=== PATIENT | male | born 1940 | race Caucasian/White ===

== ENCOUNTER 2021-11-21 09:36 | Outpatient (CLI) | payer MEDICARE, BC, SELFPAY ==
--- NOTE | 2021-11-21 09:15 | CRLHL7_ITS ---
For Patients: As a result of the Century Cures Act, medical imaging exams and procedure reports are released immediately into your electronic medical record. You may view this report before your referring provider. If you have questions, please contact your health care provider. CLINICAL HISTORY: Unspecified abdominal pain COMPARISON: none TECHNIQUE: Kennedy scale and color Doppler images were acquired of the kidneys and urinary bladder. FINDINGS: Sonographic images reveal a symmetric appearance of the kidneys. There is no evidence of hydronephrosis, mass or calculus. The right kidney measures 10.7cm in length and the left kidney measures 11.7cm in length. The renal cortex appears of normal thickness. Lobular contour of the bladder with bladder wall thickening measuring 6 millimeters. Small diverticulum suspected inferiorly. Color Doppler images reveal a normal appearance of both ureteral jets. IMPRESSION: Normal renal ultrasound. Lobular contour of the bladder with diverticulum suspected inferiorly along with bladder wall thickening. Dictated by Daniel Stuart MD @ 11/21/2021 10:45:51 AM (Electronically Signed)
== END 2021-11-21 09:37 | disposition home or self-care (01) ==
LOC: US 09:37
PROVIDERS: Visit Provider Internal Medicine Nephrology
DX: R10.9 Unspecified abdominal pain (principal)
CPT/HCPCS: 76775

== ENCOUNTER 2021-12-01 15:50 | Outpatient (CLI) | payer MEDICARE, BC, SELFPAY ==
[2021-12-01 20:40] LABS: Albumin* 3.7 g/dL (3.3-5.0); Chloride* 105 mmol/L (96-114); Potassium* 4.7 mmol/L (3.6-5.1); Sodium* 139 mmol/L (135-149)
[2021-12-01 20:42] LABS: Iron* 63 ug/dL (49-181)
[2021-12-01 20:43] LABS: Blood Urea Nitrogen* 61 mg/dL (7-30); Carbon Dioxide* 24 mmol/L (20-32); Creatinine* 2.4 mg/dL (0.5-1.5); Estimated Glomerular Filt Rate 27 ml/min; Glucose* 125 mg/dL (60-115); Uric Acid* 9.2 mg/dL (2.2-8.4)
[2021-12-01 20:44] LABS: Calcium* 9.1 mg/dL (8.4-10.6); Phosphorus* 3.6 mg/dL (2.5-4.5)
[2021-12-01 20:50] LABS: Creatinine Urine 45.2 mg/dL
[2021-12-01 20:51] LABS: Percent Iron Saturation 26 % (20-50); Total Iron Binding Capacity 248 ug/dL (261-462)
[2021-12-01 20:54] LABS: Microalbumin Creatinine Ratio 80 mg/g (0-30); Microalbumin Urine 4 mg/dL
== END 2021-12-01 15:51 | disposition home or self-care (01) ==
PROVIDERS: Visit Provider Internal Medicine Nephrology
DX: I13.0 Hypertensive heart and chronic kidney disease with heart failure and stage 1 through stage 4 chronic kidney disease, or unspecified chronic kidney disease (principal); E11.22 Type 2 diabetes mellitus with diabetic chronic kidney disease; N18.32 Chronic kidney disease, stage 3b; R10.9 Unspecified abdominal pain; R82.90 Unspecified abnormal findings in urine; I50.82 Biventricular heart failure; N25.81 Secondary hyperparathyroidism of renal origin
CPT/HCPCS: 80069; 82043; 82570; 82728; 83540; 83550; 84550; 87086

== ENCOUNTER 2022-09-01 13:59 | Outpatient (CLI) | payer MEDICARE, BC, SELFPAY ==
--- NOTE | 2022-09-15 08:50 | PC.NURSE ---
[facility] received orders for Iron infusions and Aranesp on 09/02/[address] Mccurdy. PA process completed and [facility] attempted to call pt x 3 (09/02, 09/07, 09/14) with no answer each time. Unable to reach pt to schedule. RN called Dr. Mccurdy's office today to update ordering provider.
== END 2022-09-01 14:00 | disposition home or self-care (01) ==
PROVIDERS: Visit Provider Internal Medicine Nephrology
DX: E11.22 Type 2 diabetes mellitus with diabetic chronic kidney disease (principal); N18.4 Chronic kidney disease, stage 4 (severe); D63.1 Anemia in chronic kidney disease; I50.82 Biventricular heart failure; N25.81 Secondary hyperparathyroidism of renal origin; E78.5 Hyperlipidemia, unspecified
CPT/HCPCS: 80069; 82607; 82728; 82746; 83540; 83550; 84550

== ENCOUNTER 2023-01-01 14:00 | Outpatient (RCR) | payer MEDICARE, BC, SELFPAY ==
--- NOTE | 2022-09-16 10:22 | URNOTE ---
Request received for authorization for?Iron Sucrose (Venofer) ([id number]). Prior authorization is not required as services are based on medical necessity and follow Medicare guidelines.
--- NOTE | 2022-09-16 10:23 | URNOTE ---
Request received for authorization for Suma ([id number]). Prior authorization is not required as services are based on medical necessity and follow Medicare guidelines.
--- NOTE | 2022-09-25 15:06 | ONC.NURNOTE ---
Pt did not show up for appt today for Iron and Aranesp. Fire Control Technician G called pt, no answer, unable to leave voicemail.
[2022-10-02 10:29] VITALS: BP 128/57; PULSE 60; RESP 16; TEMP 36.5; O2SAT 95
[2022-10-02 10:31] LABS: Hemoglobin* 9.8 gm/dL (13.5-17.5)
[2022-10-02] MEDS: IRON SUCROSE COMPLEX 200 MG in 0.9 % SODIUM CHLORIDE 100 ml 100 ML 440 MG IVPB (10:57)
[2022-10-02 11:17] VITALS: BP 123/75; PULSE 67; RESP 24; TEMP 36.7; O2SAT 96
[2022-10-02] MEDS: DARBEPOETIN ALFA (NON DIALYSIS) 100 MCG SUBCUT (11:27)
[2022-10-05 14:05] VITALS: BP 124/72; PULSE 72; RESP 18; TEMP 36.3; O2SAT 96
[2022-10-05] MEDS: IRON SUCROSE COMPLEX 200 MG in 0.9 % SODIUM CHLORIDE 100 ml 100 ML 440 MG IVPB (14:16)
[2022-10-05 14:36] VITALS: BP 117/71; PULSE 71; RESP 18; TEMP 36.3; O2SAT 97
[2022-10-07 15:07] VITALS: BP 114/74; PULSE 69; RESP 16; TEMP 36.7; O2SAT 97
[2022-10-07] MEDS: IRON SUCROSE COMPLEX 200 MG in 0.9 % SODIUM CHLORIDE 100 ml 100 ML 440 MG IVPB (15:19)
[2022-10-07 16:15] VITALS: BP 115/63; PULSE 74; RESP 16; TEMP 36.1; O2SAT 96
[2022-10-09] MEDS: IRON SUCROSE COMPLEX 200 MG in 0.9 % SODIUM CHLORIDE 100 ml 100 ML 440 MG IVPB (14:36)
[2022-10-09 14:37] VITALS: BP 124/66; PULSE 67; RESP 16; TEMP 36.5; O2SAT 97
[2022-10-09 14:54] VITALS: BP 118/68; PULSE 73; RESP 20; TEMP 36.5; O2SAT 95
[2022-10-09 15:26] VITALS: BP 121/73; PULSE 69; RESP 20; TEMP 36.3; O2SAT 97
[2022-10-13 14:22] VITALS: BP 130/69; PULSE 65; RESP 16; TEMP 36.5; O2SAT 94
[2022-10-13] MEDS: IRON SUCROSE COMPLEX 200 MG in 0.9 % SODIUM CHLORIDE 100 ml 100 ML 440 MG IVPB (14:56)
[2022-10-30 13:30] VITALS: BP 118/75; PULSE 62; RESP 16; TEMP 36.6; O2SAT 93
[2022-10-30 13:57] LABS: Hematocrit 33.6 % (37.0-53.0); Hemoglobin* 10.4 gm/dL (13.5-17.5); Mean Corpuscular HGB Conc 31 gm/dL (32-36); Mean Corpuscular Hemoglobin 28 pg (26-34); Mean Corpuscular Volume 89 fL (80-100); Platelet Count* 265 K/uL (140-440); Red Blood Count 3.77 m/uL (4.30-5.90); White Blood Count* 6.01 K/uL (4.50-11.00)
[2022-10-30 14:06] LABS: Slide Review Reflex No
[2022-10-30] MEDS: DARBEPOETIN ALFA (NON DIALYSIS) 100 MCG SUBCUT (14:21)
[2022-12-04 13:49] VITALS: BP 113/54; PULSE 68; RESP 20; O2SAT 97
[2022-12-04 14:05] LABS: Hemoglobin* 10.3 gm/dL (13.5-17.5)
[2022-12-04] MEDS: DARBEPOETIN ALFA (NON DIALYSIS) 100 MCG SUBCUT (14:28)
[2023-01-01 14:15] LABS: Hematocrit 31.8 % (37.0-53.0); Hemoglobin* 9.9 gm/dL (13.5-17.5); Mean Corpuscular HGB Conc 31 gm/dL (32-36); Mean Corpuscular Hemoglobin 29 pg (26-34); Mean Corpuscular Volume 93 fL (80-100); Platelet Count* 275 K/uL (140-440); Red Blood Count 3.43 m/uL (4.30-5.90); Slide Review Reflex No; White Blood Count* 6.31 K/uL (4.50-11.00)
[2023-01-01 14:22] LABS: Chloride* 108 mmol/L (96-114)
[2023-01-01 14:23] LABS: Albumin* 3.8 g/dL (3.3-5.0); Potassium* 5.4 mmol/L (3.6-5.1); Sodium* 142 mmol/L (135-149)
[2023-01-01 14:25] LABS: Creatinine* 2.5 mg/dL (0.5-1.5); Estimated Glomerular Filt Rate 25 ml/min
[2023-01-01 14:26] LABS: Blood Urea Nitrogen* 57 mg/dL (7-30); Carbon Dioxide* 24 mmol/L (20-32); Glucose* 96 mg/dL (60-115); Phosphorus* 3.3 mg/dL (2.5-4.5)
[2023-01-01 14:27] LABS: Calcium* 9.2 mg/dL (8.4-10.6)
[2023-01-01 14:32] VITALS: BP 119/72; PULSE 71; RESP 32; TEMP 36.6; O2SAT 94
[2023-01-01 14:38] LABS: Iron* 39 ug/dL (49-181)
[2023-01-01] MEDS: DARBEPOETIN ALFA (NON DIALYSIS) 100 MCG SUBCUT (14:44)
[2023-01-01 14:47] LABS: Percent Iron Saturation 17 % (20-50); Total Iron Binding Capacity 227 ug/dL (261-462)
[2023-01-01 15:16] LABS: Vitamin B12* 857 pg/mL (243-894)
[2023-01-02 10:40] LABS: Folate, Serum >22.3 ng/mL (>=5.9)
[2023-03-26 13:53] VITALS: BP 109/55; PULSE 60; RESP 18; TEMP 36.8; O2SAT 96
[2023-03-26 14:13] LABS: Hemoglobin* 9.3 gm/dL (13.5-17.5)
== END 2023-01-14 17:08 | disposition home or self-care (01) ==
LOC: CCIC 14:00
PROVIDERS: Internal Medicine Nephrology; Visit Provider Clinical Nurse Specialist
DX: N18.30 Chronic kidney disease, stage 3 unspecified (principal); D63.1 Anemia in chronic kidney disease; E11.9 Type 2 diabetes mellitus without complications
CPT/HCPCS: 36415; 80069; 82607; 82728; 82746; 83540; 83550; 84550; 85018; 85027; 96365; 96372; 96374; J0881; J1756

== ENCOUNTER 2023-06-18 14:30 | Outpatient (RCR) | payer MEDICARE, BC, SELFPAY ==
[2023-01-29 14:34] LABS: Hemoglobin* 10.1 gm/dL (13.5-17.5)
[2023-01-29 14:53] VITALS: BP 119/69; PULSE 71; RESP 16; TEMP 36.2; O2SAT 94
[2023-01-29] MEDS: DARBEPOETIN ALFA (NON DIALYSIS) 100 MCG SUBCUT (14:58)
[2023-02-26 14:24] VITALS: BP 121/76; PULSE 63; RESP 14; TEMP 36.6; O2SAT 96
[2023-02-26 14:34] LABS: Hemoglobin* 10.1 gm/dL (13.5-17.5)
[2023-02-26] MEDS: DARBEPOETIN ALFA (NON DIALYSIS) 100 MCG SUBCUT (15:11)
[2023-03-26] MEDS: DARBEPOETIN ALFA (NON DIALYSIS) 100 MCG SUBCUT (14:20)
[2023-04-23 14:10] LABS: Hemoglobin* 9.4 gm/dL (13.5-17.5)
[2023-04-23 14:13] VITALS: BP 120/72; PULSE 59; RESP 18; TEMP 36.7; O2SAT 97
[2023-04-23] MEDS: DARBEPOETIN ALFA (NON DIALYSIS) 100 MCG SUBCUT (14:28)
[2023-05-21 14:09] LABS: Hemoglobin* 9.2 gm/dL (13.5-17.5)
[2023-05-21 14:22] VITALS: BP 110/58; PULSE 74; RESP 16; TEMP 36.5; O2SAT 97
[2023-05-21] MEDS: DARBEPOETIN ALFA (NON DIALYSIS) 100 MCG SUBCUT (14:44)
[2023-06-18 14:11] LABS: Hemoglobin* 9.3 gm/dL (13.5-17.5)
[2023-06-18] MEDS: DARBEPOETIN ALFA (NON DIALYSIS) 100 MCG SUBCUT (14:24)
[2023-06-18 14:31] VITALS: BP 124/83; PULSE 76; RESP 18; O2SAT 95
== END 2023-07-28 23:59 | disposition home or self-care (01) ==
LOC: CCIC 14:30
PROVIDERS: Visit Provider Clinical Nurse Specialist
DX: N18.30 Chronic kidney disease, stage 3 unspecified (principal); D63.1 Anemia in chronic kidney disease
CPT/HCPCS: 36415; 85018; 96372; 96401; J0881

== ENCOUNTER 2023-06-21 15:50 | Outpatient (CLI) | payer MEDICARE, BC, SELFPAY ==
--- OUTSIDE RECORDS SUMMARY | 2023-06-23 11:31 | XMS_ITS | Clinical Summary ---
Author Name Unknown Organization [facility] Address [address] [place] [address] Care Team Providers Care English Horn Player Name Role Phone Unavailable Primary Care Provider Unavailabl e Source Comments You are receiving this document as you are listed as the primary care provider,follow-up provider, or the patient has been referred to you for consultation.This is in compliance with the Medicare andMedicaid EHR Incentive Program,which states Providers who transition their patient to another setting of careor provider of care or refers their patient to another provider of care shouldprovide summary care record for each transition of care or referral. [facility] Allergies No known active allergies Medications Medication Sig Dispensed Refills Start Date End Date Status atorvastatin (LIPITOR) 40 MG tablet Take 40 mg by mouth daily. 0 06/18/2021 Active carvedilol (COREG) 3.125 MG tablet Take 3.125 mg by mouth two times a day. 0 06/08/2021 Active clopidogrel (PLAVIX) 75 MG tablet Take 75 mg by mouth daily. 0 06/08/2021 Active glipiZIDE XL (GLUCOTROL XL) 5 MG 24 hour release tablet Take 5 mg by mouth daily. 0 06/25/2021 Active hydrALAZINE (APRESOLINE) 25 MG tablet Take 25 mg by mouth three times a day. 0 05/26/2021 Active isosorbide mononitrate (IMDUR) 30 MG extended release tablet Take 30 mg by mouth daily. 0 05/15/2021 Active potassium chloride SA (KLOR-CON) 10 MEQ controlled release tablet Take by mouth. 0 08/04/2021 Active torsemide (DEMADEX) 10 MG tablet Take by mouth. 0 08/04/2021 Active Active Problems No known active problems Social History Tobacco Use Types Packs/Day Years Used Date Smoking Tobacco: Never Smokeless Tobacco: Never Sex and Gender Information Value Date Recorded Sex Assigned at Not on file Gender Identity Not on file Sexual Orientation Not on file Last Filed Vital Signs Vital Sign Reading Time Taken Comments Blood Pressure 130/66 08/08/2021 2:56 PM CDT Pulse 61 08/08/2021 2:56 PM CDT Temperature 36.4 ??C (97.5 ??F) 08/08/2021 2:56 PM CD T Respiratory Rate 20 08/08/2021 2:56 PM CDT Oxygen Saturation 98% 08/08/2021 2:56 PM CDT Inhaled Oxygen Concentration - - Weight - - Height - - Body Mass Index - - Plan of Treatment Health Maintenance Due Date Last Done Comments Medicare Annual Wellness Visit 1940 DTaP/Tdap/Td (1 - Tdap) 10/26/2006 10/25/2006 Pneumococcal 65+ Yrs (2 - PCV) 09/26/2010 09/26/2009 Zoster/Shingles (2 of 3) 04/25/2012 02/29/2012 COVID-19 Vaccine (4 - 2022-2 4 season) 2023 03/20/2021, 08/08/2020, 07/18/2020 Influenza (#1) 2023 02/29/2012, 02/29/2012 HepA Aged Out No longer eligi ble based on patient's age to complete this topic HepB Aged Out No longer eligi ble based on patient's age to complete this topic Hib Aged Out No longer eligi ble based on patient's age to complete this topic IPV (Polio) Aged Out No longer eligi ble based on patient's age to complete this topic MCV4 Aged Out No longer eligi ble based on patient's age to complete this topic Ulises Delgado MVA/TPL Self [id number] [address]
--- OUTSIDE RECORDS SUMMARY | 2023-06-23 11:32 | XMS_ITS | Encounter Summary ---
Author Name Unknown Organization [facility] Address [address] [place] [address] Care Team Providers Care Thermal Engineer Name Role Phone Clinic, [facility] Primary Care Provide r Britta Raya RN Unavailable Unavaila [facility] Adal Turner MD Unavailable Edmar Brunner MD Unavailable [phone] Reason for Visit * Reason Onset Date Comments Refill Request 05/28/2023 Torsemide, [facility] Refill Guideline reviewed. Medication meets criteria for refill. Encounter Details Date Type Department Care Team (Late st Contact Info) Description 05/28/2023 Refill [facility] [place] [address] [facility] [address] [place] [address] Adal Turner MD [address] [place], [place] [id number] Refill Request (Torsemide, [facility] Refill Guideline reviewed. Medication meets criteria for refill. ) Social History Tobacco Use Types Packs/Day Years Used Date Smoking Tobacco: Former Cigarettes Q uit: 05/17/1981 Passive Smoke Exposure: Never Smokeless Tobacco: Never Alcohol Use Standard Drinks/Week Comments Never 0 (1 standard drink = 0.6 oz pur e alcohol) AUDIT-C Answer Date Recorded Q1: How often do you have a drink containing alc ohol? Never 08/19/2019 Average Number of Drinks Not on file 020 Frequency of Binge Drinking Not on file 08/2019 PHQ-2 Answer Date Recorded PHQ-2 Score 2 02/19/2023 Adolescent Education Answer Date Record ed Getting School Help Needed Not on file 02/13 Sex and Gender Information Value Date Recorded Sex Assigned at Not on file Gender Identity Not on file Sexual Orientation Not on file documented as of this encounter Plan of Treatment Not on file documented as of this encounter Visit Diagnoses Diagnosis Chronic systolic congestive heart failure (H) Chronic systolic heart failure documented in this encounter Care Teams Thermal Engineer Relationship Specialty Start Date End Date [facility], [facility] [address] [place] [address] PCP - General 08/19/19 Britta Raya, RN Registered Nurse Cardiology 10/27/22 Adal Turner MD [address] [facility] [address] [place] [address] Assigned Heart and Vascular Provider 02/20/23 Edmar Brunner MD [address] [place] [address] Assigned Surgical Provider 04/10/23 documented as of this encounter
--- OUTSIDE RECORDS SUMMARY | 2023-06-23 11:32 | XMS_ITS | Encounter Summary ---
Author Name Unknown Organization [facility] Address [address] [place] [address] Care Team Providers Care Patient Service Coordinator Name Role Phone [facility], [facility] Primary Care Provide r Britta Raya RN Unavailable Unavaila Adal Soliz MD Unavailable Reason for Referral * Consultation (Urgent: 3-5 Days) - Referral NOT Required Specialty Diagnoses / Procedures Referred By Julio burk Referred To Contact Surgery Diagnoses Bulge in groin area Roxi Nolasco PA-C [address] [place] [address] Surgical Consult [address], [address] [place] [address] Referral ID Status Reason Start Date Expiration Date V isits Requested Visits Authorized [id number] Referral NOT Required 03/24/2023 03/23/2024 1 1 Question Answer Preferred Location: [facility] [place] Scheduling Instructions: Please call to schedule your appointment Additional Information: Right Inguinal hernia Comments Please be aware that coverage of these services is subject to the terms and limitations of your health insurance plan. Call member services at your health plan with any benefit or coverage questions. Please call to schedule your appointment EXTRUSION OPERATOR Reason for Visit * Reason Comments Mass Pt reports small mas s on R side groin, occasionally painful X 3-4 days. Encounter Details Date Type Department Care Team (Late Contact Info) Description 03/24/2023 4:50 PM SEAL EXTRUSION OPERATOR Office Visit [facility] [place] [address] [place] [address] Roxi Nolasco PA-C [address] [place] [address] Bulge in groin area (Primary Dx) Social History Tobacco Use Types Packs/Day Years Used Date Smoking Tobacco: Former Cigarettes Q uit: 05/17/1981 Smokeless Tobacco: Never Alcohol Use Standard Drinks/Week [...] on file documented as of this encounter Last Filed Vital Signs Vital Sign Reading Time Taken Comments Blood Pressure 126/66 03/24/2023 4:11 PM SEAL EXTRUSION OPERATOR Pulse 72 03/24/2023 4:11 PM SEAL EXTRUSION OPERATOR Temperature - - Respiratory Rate 16 03/24/2023 4:11 PM SEAL EXTRUSION OPERATOR Oxygen Saturation 100% 03/24/2023 4:11 PM SEAL EXTRUSION OPERATOR Inhaled Oxygen Concentration - - Weight - - Height - - Body Mass Index - - documented in this encounter Patient Instructions * Attachments The following attachments cannot be sent through Care Everywhere. * Inguinal Hernia (W[place]sh) documented in this encounter Progress Notes * Roxi Nolasco PA-C - 03/24/2023 4:50 PM CST Assessment & Plan Bulge in groin area Acute problem. No evidence of strangulation or incarcerated hernia. On exam patient is in no acute distress. General surgery referral to discuss options. In the interim, recommended no heavy lifting or strenuous activities. Tylenol/warm packs as needed for discomfort. Follow-up with general surgeryas we discussed. Patient agrees with the plan. - Adult General Surg Referral Return in about 1 week (around 03/31/2023) for Follow up with general surgery to further evaluation. Roxi Nolasco PA-C [facility] PATEL [place] is a 82 year old male who presents to clinic today for the following health issues: Chief Complaint Patient presents with Mass Pt reports small mass on R side groin, occasionally painful X 3-4 days. HPI He is presenting to urgent care today with a complaint of bulging mass in the right groin. Noted the bulge approximately 4 days ago. Slight discomfort at times but no severe pain. Patient notes he lifted 40 pounds of water softener salt bag last week. He otherwise denies any urinary symptoms. No dysuria or hematuria. No abdominal pain. Review of Systems Constitutional, HEENT, cardiovascular, pulmonary, GI, , musculoskeletal, neuro, skin, endocrine and psych systems are negative, except as otherwise noted. Objective BP 126/66 (BP Location: Right arm, Patient Position: Sitting, Cuff Size: Adult Regular) Pulse 72 Resp 16 SpO2 100% Physical Exam GENERAL: healthy, alert and no distress RESP: Normal breathing effort ABDOMEN: soft, nontender, no hepatosplenomegaly, bowel sounds normal MS: Right groin exam: There is a reducible inguinal hernia that is noted. Protruding with Valsalva maneuver. No significant tenderness to palpation. No open wounds or sores. No skin erythema. EXTRUSION OPERATOR documented in this encounter Plan of Treatment Scheduled Referrals Name Type Priority Associated Diagnoses Orde r Schedule Adult General Surg Referral Referral Urgent: 3-5 Days Bulge in groin area Expected: 03/24/2023 (Approximate), Expires: 03/24/2024 documented as of this encounter Visit Diagnoses Diagnosis Bulge in groin area- Primary documented in this encounter Care Teams Patient Service Coordinator Relationship Specialty Start Date End Date [facility], [facility] [id number] [place] [address] PCP - General 08/19/19 Britta Raya RN Registered Nurse Cardiology 10/27/22 Adal Turner MD [address] [place] [id number] Assigned Heart and Vascular Provider 02/20/23 documented as of this encounter
--- OUTSIDE RECORDS SUMMARY | 2023-06-23 11:32 | XMS_ITS | Referral Summary ---
Author Name Unknown Organization [facility] Address [address] [place] [address] Care Team Providers Care Business Support Professional Name Role Phone [facility], [facility] Primary Care Provide r Britta Raya RN Unavailable Unavaila ble Adal Turner MD Unavailable Edmar Brunner MD Unavailable [phone] Encounters Date Type Department Care Team Description 05/28/2023 Refill [facility] [address] [place] [id number] Adal Turner MD Refill Request ([facility] Refill Guideline reviewed. Medication meets criteria for refill. ) 04/05/2023 Travel 04/05/2023 1:00 PM MEDICAL LOGISTICS SPECIALIST Office Visit [facility] Surgery [place] [address] [place] [address] Edmar Brunner MD Right inguinal hernia (Primary Dx) 03/24/2023 Travel 03/24/2023 4:50 PM MEDICAL LOGISTICS SPECIALIST Office Visit [facility] [place] [address] [place] [address] Roxi Nolasco PA-C Bulge in groin area (Primary Dx) from Last 3 Months Allergies Active Allergy Reactions Criticality Noted Date Comments Penicillins Hives Medium 03/24/2007 Medications Medication Sig Dispensed Refills Start Date End Date Status nitroGLYcerin (NITROSTAT) 0.4 MG sublingual tabletIndications :ACS (acute coronary syndrome) (H) For chest pain place 1 tablet under the tongue every 5 minutes for 3 doses. If symptoms persist 5 minutes after 1st dose call 911. 25 tablet 0 09/05/2019 Active blood glucose monitoring (NO BRAND SPECIFIED) meter device kitIndications:Ty pe 2 diabetes mellitus without complication, without long-term current use of insulin (H) Use to test blood sugar 4 times daily or as directed. 1 kit 0 09/05/2019 Active blood glucose (NO BRAND SPECIFIED) test stripIndications: Type 2 diabetes mellitus without complication, without long-term current use of insulin (H) Use to test blood sugar 4 times daily or as directed. 100 strip 1 09/05/2019 Active blood glucose calibration (NO BRAND SPECIFIED) solutionIndicatio ns:Type 2 diabetes mellitus without complication, without long-term current use of insulin (H) Use to calibrate blood glucose monitor as needed as directed. 1 Bottle 3 09/05/2019 Active thin (NO BRAND SPECIFIED) lancetsIndication s:Type 2 diabetes mellitus without complication, without long-term current use of insulin (H) Use with lanceting device. 200 each 1 09/05/2019 Active alcohol swab prep padsIndications:T ype 2 diabetes mellitus without complication, without long-term current use of insulin (H) Use to swab area of injection/trish as directed. 100 each 3 09/05/2019 Active glipiZIDE (GLUCOTROL XL) 5 MG 24 hr tablet Take 5 mg by mouth daily Take 1 tablet with breakfast 0 Active fish oil-omega-3 fatty acids 1000 MG capsuleIndication s:900 mg daily Take 1 g by mouth daily 0 Active Vitamin D3 (CHOLECALCIFEROL) 125 MCG (5000 UT) tablet Take 1 tablet by mouth daily 0 Active Glucosamine HCl (GLUCOSAMINE PO) Take 1,500 mg by mouth 2 times daily 0 Active Multiple Vitamins-Minerals (PRESERVISION AREDS PO) Take 1 tablet by mouth 2 times daily 0 Active multivitamin w/minerals (THERA-VIT-M) tablet Take 1 tablet by mouth daily 0 Active psyllium (METAMUCIL/KONSYL ) PacketIndications :Constipation, unspecified constipation type Take 1 packet by mouth daily as needed for constipation 15 packet 0 05/18/2022 Active isosorbide mononitrate (IMDUR) 30 MG 24 hr tabletIndications :Ischemic cardiomyopathy,Ch ronic systolic congestive heart failure (H),Mitral valve insufficiency, unspecified etiology Take 1 tablet (30 mg) by mouth daily At night 90 tablet 3 07/29/2022 Active hydrALAZINE (APRESOLINE) 25 MG tabletIndications :Ischemic cardiomyopathy,Ch ronic systolic congestive heart failure (H),Mitral valve insufficiency, unspecified etiology Take 1 tablet (25 mg) by mouth 3 times daily 270 tablet 3 07/29/2022 Active atorvastatin (LIPITOR) 40 MG tabletIndications :Ischemic cardiomyopathy,AC S (acute coronary syndrome) (H) Take 1 tablet (40 mg) by mouth every evening 90 tablet 3 07/29/2022 Active clopidogrel (PLAVIX) 75 MG tabletIndications :Ischemic cardiomyopathy,AC S (acute coronary syndrome) (H) Take 1 tablet (75 mg) by mouth daily 90 tablet 3 07/29/2022 Active carvedilol (COREG) 3.125 MG tabletIndications :Ischemic cardiomyopathy,Ch ronic systolic congestive heart failure (H),ACS (acute coronary syndrome) (H) Take 1 tablet (3.125 mg) by mouth 2 times daily (with meals) 180 tablet 3 07/29/2022 Active albuterol (PROVENTIL) (2.5 MG/3ML) 0.083% neb solution Inhale 3 mL (2.5 mg) via a nebulizer every 4 hours if needed for Shortness Of Breath or Cough.* 0 09/17/2022 Active cetirizine (ZYRTEC) 10 MG tabletIndications :Pruritic erythematous rash Take 1 tablet (10 mg) by mouth daily 14 tablet 0 03/19/2023 Active triamcinolone (KENALOG) 0.1 % external creamIndications: Pruritic erythematous rash Apply topically 2 times daily 80 g 0 03/19/2023 Active torsemide (DEMADEX) 10 MG tabletIndications :Chronic systolic congestive heart failure (H) Take 2 tablets (20 mg) by mouth daily 180 tablet 1 05/28/2023 Active torsemide (DEMADEX) 10 MG tabletIndications :Chronic systolic congestive heart failure (H) Take 2 tablets (20 mg) by mouth daily 0 11/10/2022 Discontinue d(Reorder (No AVS)) Active Problems Problem Noted Date Diagnosed Date Myocardial injury 05/10/2022 Acute on chronic systolic congestive heart failu re 05/10/2022 Pneumonia of both lungs due to infectious organism, unspecified part of lung 05/10/2022 Type 2 diabetes mellitus wit h stage 4 chronic kidney disease, unspecified whether detention insulin use 05/10/2022 CKD (chronic kidney disease) stage 4, GFR 15-29 ml/min 04/14/2021 Diabetes mellitus, type 2 10/15/2020 CHF (congestive heart failure) 09/29/2019 Ischemic cardiomyopathy 08/20/2019 ACS (acute coronary syndrome) 08/20/2019 Social History Tobacco Use Types Packs/Day Years Used Date Smoking Tobacco: Former Cigarettes Q uit: 05/17/1981 Passive Smoke Exposure: Never Smokeless Tobacco: Never Tobacco Cessation:Counseling Given: Yes Alcohol Use Standard Drinks/Week Comments Never 0 [...] Sign Reading Time Taken Comments Blood Pressure 114/58 04/05/2023 1:07 PM MEDICAL LOGISTICS SPECIALIST Pulse 61 04/05/2023 1:07 PM MEDICAL LOGISTICS SPECIALIST Temperature 36.4 ??C (97.5 ??F) 03/19/2023 5:36 PM CD T Respiratory Rate 16 03/24/2023 4:11 PM MEDICAL LOGISTICS SPECIALIST Oxygen Saturation 98% 04/05/2023 1:07 PM MEDICAL LOGISTICS SPECIALIST Inhaled Oxygen Concentration - - Weight 79.4 kg (175 lb) 04/05/2023 1:07 PM MEDICAL LOGISTICS SPECIALIST Height 180.3 cm (5' 11) 04/05/2023 1:07 PM MEDICAL LOGISTICS SPECIALIST Body Mass Index 24.41 04/05/2023 1:07 PM MEDICAL LOGISTICS SPECIALIST Plan of Treatment Not on file Medical Devices Implanted Type Area Scowman Device Identifier Shelf Expiration Date Model / Serial / Lot Stent [employer] Eluting [id number] Implanted:08/15 at [facility] (Quantity not on file) Stent Drug Eluting ([employer]) [employer] 01/16/2021 [id number] / / [id number] Advance Directives For more information, please contact: [phone] Latest Code Status on File Code Status Date Activated Date Inactivated Comments Full Code 05/18/2022 10:34 AM Question Answer Comments Code status determined by: Discussion wi patient/ legal decision maker Code Status History Code Status Date Activated Date Inactivated Comments No CPR- Do NOT Intubate 05/10/2022 4:20 PM 05/18/2022 10:34 AM NO basic or advanced life-sustaining interventions are performed Question Answer Comments Code status determined by: Discussion with patient/ legal decision maker Full Code 10/02/2019 9:56 AM 05/10/2022 12:14 PM Question Answer Comments Code status determined by: Discussion with patient/legal decision maker Full Code 09/29/2019 12:17 AM 10/02/2019 9:56 AM Question Answer Comments Code status determined by: Discussion with patient/legal decision maker DNR 08/20/2019 2:07 AM 09/05/2019 4:39 PM Okay f or a time limited trial of intubation for reversible causes Question Answer Comments Code status determined by: Discussion with patient/legal decision maker Care Teams Business Support Professional Relationship Specialty Start Date End Date Clinic, [facility] [address] [place] [address] PCP - General 08/19/19 Britta Raya, RN Registered Nurse Cardiology 10/27/22 Adal Turner MD [address] [place] [address] Assigned Heart and Vascular Provider 02/20/23 Edmar Brunner MD [address] [place], [place] [address] Assigned Surgical Provider 04/10/23
--- OUTSIDE RECORDS SUMMARY | 2023-06-23 11:32 | XMS_ITS | Encounter Summary ---
Author Name Unknown Organization [facility] Address [address] [place] [address] Care Team Providers Care Manager Medicaid Name Role Phone [facility] Primary Care Provide r Britta Raya RN Unavailable Unavaila ble Adal Turner MD Unavailable Encounter Details Date Type Department Care Team (Latest Contact Info) Description 04/05/2023 Travel Social History Tobacco Use Types Packs/Day Years [...] documented as of this encounter Visit Diagnoses Not on filedocumented in this encounter Care Teams Manager Medicaid Relationship Specialty Start Date End Date [facility], [facility] [address] [place] [address] PCP - General 08/19/19 Britta Raya, CHASE Registered Nurse Cardiology 10/27/22 Adal Turner MD [address] [place] [id number] Assigned Heart and Vascular Provider 02/20/23 documented as of this encounter
--- OUTSIDE RECORDS SUMMARY | 2023-06-23 11:32 | XMS_ITS | Encounter Summary ---
Author Name Unknown Organization [facility] Address [facility] [place] [address] Care Team Providers Care Electrical Superintendent Name Role Phone [facility] Primary Care Provide r Britta Raya RN Unavailable Unavaila Tristan Burnett NP Unavailable [phone] Encounter Details Date Type Department Care Team (Latest Contact Info) Description 02/19/2023 Travel Social History Tobacco Use Types Packs/Day [...] on file Sexual Orientation Not on file COVID-19 Exposure Response Date Recorded In the last 10 days, have yo u been in contact with someone who was confirmed or suspected to have Coronavirus/COVID-19? No / Unsure 02/19/2023 3:07 PM CDT documented as of this encounter Plan of Treatment Not on file documented as of this encounter Visit Diagnoses Not on filedocumented in this encounter Care Teams Electrical Superintendent Relationship Specialty Start Date End Date [facility], [facility] [address] [place] [address] PCP - General 08/19/19 Britta Raya, RN Registered Nurse Cardiology 10/27/22 Tristan Valdez NP [address] [place] [address] Assigned Heart and Vascular Provider 02/06/23 02/19/23 documented as of this encounter
--- OUTSIDE RECORDS SUMMARY | 2023-06-23 11:32 | XMS_ITS | Encounter Summary ---
Author Name Unknown Organization [place] Address Formerly [facility] [place] [address] Care Team Providers Care Lead Material Handler Name Role Phone [facility] Primary Care Provide r Britta Raya RN Unavailable Unavaila Adal Soliz MD Unavailable Encounter Details Date Type Department Care Team (Latest Contact Info) Description 03/19/2023 Travel Social History Tobacco Use Types Packs/Day [...] on filedocumented in this encounter Care Teams Lead Material Handler Relationship Specialty Start Date End Date [facility], [facility] [address] [place] [address] PCP - General 08/19/19 Britta Raya, RN Registered Nurse Cardiology 10/27/22 Adal Turner MD [address], [facility] [address] [place] [address] Assigned Heart and Vascular Provider 02/20/23 documented as of this encounter
--- OUTSIDE RECORDS SUMMARY | 2023-06-23 11:32 | XMS_ITS | Clinical Summary ---
Author Name Unknown Organization [place] Address [address] [place] [address] Care Team Providers Care Founding Partner Name Role Phone [facility], [facility] Primary Care Provide r Britta Raya RN Unavailable Unavaila ble Adal Turner MD Unavailable Edmar Brunner MD Unavailable [phone] Allergies Active Allergy Reactions Criticality Noted Date [...] (20 mg) by mouth daily 0 11/10/2022 4 Discontinue d(Reorder (No AVS)) Active Problems Problem Noted Date Diagnosed Date Myocardial injury 05/10/2022 Acute on chronic systolic congestive heart failu re 05/10/2022 Pneumonia of both lungs due to infectious organism, unspecified part of lung 05/10/2022 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 Medication meets criteria for refill. ) 04/05/2023 1:00 PM BRAZER RESISTANCE Office Visit [facility] [place] [address] [facility] [address] [place] [address] Edmar Brunner MD Right inguinal hernia (Primary Dx) 04/05/2023 Travel 03/24/2023 4:50 PM BRAZER RESISTANCE Office Visit [facility] [address] [place] [phone] Roxi Nolasco PA-C Bulge in groin area (Primary Dx) 03/24/2023 Travel from Last 3 Months Social History Tobacco Use Types Packs/Day Years [...] Comments Blood Pressure 114/58 04/05/2023 1:07 PM BRAZER RESISTANCE Pulse 61 04/05/2023 1:07 PM BRAZER RESISTANCE Temperature 36.4 ??C (97.5 ??F) 03/19/2023 5:36 PM CD T Respiratory Rate 16 03/24/2023 4:11 PM BRAZER RESISTANCE Oxygen Saturation 98% 04/05/2023 1:07 PM BRAZER RESISTANCE Inhaled Oxygen Concentration - - Weight 79.4 kg (175 lb) 04/05/2023 1:07 PM BRAZER RESISTANCE Height 180.3 cm (5' 11) 04/05/2023 1:07 PM BRAZER RESISTANCE Body Mass Index 24.41 04/05/2023 1:07 PM BRAZER RESISTANCE Plan of Treatment Health Maintenance Due Date Last Done Comments ANNUAL REVIEW OF HM ORDERS 1941 DIABETIC FOOT EXAM 1941 EYE EXAM 1941 HF ACTION PLAN 1941 MICROALBUMIN 1941 RSV VACCINE ( & 60+) (1 - 1-dose 60+ series) 2001 FALL RISK ASSESSMENT 2006 Pneumococcal Vaccine: 65+ Years (2 of 2 - PCV) 09/26/2010 09/26/2009 A1C 11/19/2019 08/20/2019 LIPID 05/12/2022 05/12/2021, 09/15, 01/16/2020, Additional history exists HEMOGLOBIN 11/13/2022 05/16/2022, 04/18, 05/13/2022, Additional history exists COVID-19 Vaccine (2022- season) 2023 12/29/2021, 03/20/2021, 08/08/2020, Additional history exists INFLUENZA VACCINE (#1) 2023 , 02/29/2012, 02/29/2012 MEDICARE ANNUAL WELLNESS VISIT 02/23/2023 02/23/2022 BMP 02/27/2023 11/27/2022, 10/16, 07/29/2022, Additional history exists ALT 05/11/2023 05/11/2022, 07/16, 10/10/2020, Additional history exists CBC 05/16/2023 05/16/2022, 04/18, 05/13/2022, Additional history exists PHQ-2 (once per calendar year) 2023 02/19/2023 ADVANCE CARE PLANNING 08/25/2024 08/26/2019 DTAP/TDAP/TD IMMUNIZATION (2 - Td or Tdap) 01/04/2033 01/04/2023, 10/25/2006 TSH W/FREE T4 REFLEX Completed 08/20/2019 PARATHYROID Completed 08/24/2019 PHOSPHORUS Completed 08/24/2019 URINALYSIS Completed 09/28/2019, 08/15, 08/21/2019 ALK PHOS Completed 05/11/2022, 09/14, 09/04/2019, Additional history exists ZOSTER IMMUNIZATION Completed 04/02/2023, 01/04/2023, 02/29/2012 HPV IMMUNIZATION Aged Out No longer e ligible based on patient's age to complete this topic IPV IMMUNIZATION Aged Out No longer e ligible based on patient's age to complete this topic MENINGITIS IMMUNIZATION Aged Out No l onger eligible based on patient's age to complete this topic RSV MONOCLONAL ANTIBODY Aged Out No l onger eligible based on patient's age to complete this topic Medical Devices Implanted Type Area Drafter Geological Device Identifier Shelf Expiration Date Model / Serial / Lot Stent Synergy [employer] Eluting [id number] Implanted:08/15 at [facility] (Quantity not on file) Stent [employer] Eluting ([place]) [employer] 01/16/2021 [id number] / / [id number] Advance Directives For more information, please contact: [phone] Latest Code Status on File Code Status Date Activated Date Inactivated Comments Full Code 05/18/2022 10:34 AM Question Answer Comments Code status determined by: Discussion wi th patient/ legal decision maker Code Status History [...] Discussion with patient/legal decision maker Care Teams Founding Partner Relationship Specialty Start Date End Date [facility], [facility] [address] [place] [address] PCP - General 08/19/19 Britta Raya, RN Registered Nurse Cardiology 10/27/22 Adal Turner MD [address] , [facility] [address] [place] [address] Assigned Heart and Vascular Provider 02/20/23 Edmar Brunner MD [address] [place] [address] Assigned Surgical Provider 04/10/23
--- OUTSIDE RECORDS SUMMARY | 2023-06-23 11:32 | XMS_ITS | Encounter Summary ---
Author Name Unknown Organization [place] Address [address] [place] [address] Care Team Providers Care Yacht Master Name Role Phone [facility], [facility] Primary Care Provide r Britta Raya RN Unavailable Unavaila Adal Soliz MD Unavailable Reason for Visit * Reason Comments Consult Hernia Encounter Details Date Type Department Care Team ([facility] st Contact Info) Description 04/05/2023 1:00 PM PHYSICIAN ALLERGIST IMMUNOLOGIST Office Visit [facility] [place] [address] [place] [address] Edmar Brunner MD [address] [place] [address] Right inguinal hernia (Primary Dx) Social History Tobacco Use Types [...] Comments Blood Pressure 114/58 04/05/2023 1:07 PM PHYSICIAN ALLERGIST IMMUNOLOGIST Pulse 61 04/05/2023 1:07 PM PHYSICIAN ALLERGIST IMMUNOLOGIST Temperature - - Respiratory Rate - - Oxygen Saturation 98% 04/05/2023 1:07 PM PHYSICIAN ALLERGIST IMMUNOLOGIST Inhaled Oxygen Concentration - - Weight 79.4 kg (175 lb) 04/05/2023 1:07 PM PHYSICIAN ALLERGIST IMMUNOLOGIST Height 180.3 cm (5' 11) 04/05/2023 1:07 PM PHYSICIAN ALLERGIST IMMUNOLOGIST Body Mass Index 24.41 04/05/2023 1:07 PM PHYSICIAN ALLERGIST IMMUNOLOGIST documented in this encounter Progress Notes * Edmar Brunner MD - 04/05/2023 1:00 PM CST Ulises is a 82 year old male who presents for evaluation for inguinal hernia. Symptoms began earlier this month. He was seen in the walk in clinic for this concern. This is described as a mild discomfort and is located in the right groin. Symptoms may have been precipitated by lifting a softener salt bag. The patient has noticed a bulge. Pt has had previous abdominal surgery including an umbilical hernia repair about five years ago. Employment does notrequire heavy lifting. He has a history of restrictive pulmonary disease and CHF with an EF of around 30%. He has baseline SOB. He is currentlyon Plavix. Constipation No Dysuria No Cough No Pt's chart has been reviewed for PMH, PSH, allergies, medications, social history and family history. ROS: Pulm: No shortness of breath, dyspnea on exertion, cough, or hemoptysis CV: negative ABD: See chief complaint : Negative All other systems negative/normal BP 114/58 Pulse 61 Ht 1.803 m (5' 11) Wt 79.4 kg (175 lb) SpO2 98% BMI 24.41 kg/m?? Physical exam: Patient able to get up on table with difficulty. Abdomen is abdomen is soft without significant tenderness, masses, organomegaly or guarding bowel sounds are positive and no caput medusa noted. Hernia Left inguinal hernia is not present with valsalva Right inguinal hernia is present with valsalva The hernia is reducible and non-tender. Testicles are normal Assesment: right inguinal hernia Plan: The nature of hernias, anatomic considerations, indications and approaches to repair were discussed. The natural history and incarceration rates were discussed as well. Given the relative lack of symptoms and notable cardiac disease, I've recommended observation for now. We discussed signs of incarceration and indications to go to the emergency room. He may see us if his symptoms become limiting in his daily activities. Edmar Townsend MD 04/05/2023 1:19 PM Please route or send letter to: Primary Care Provider (PCP) ICIAN ALLERGIST IMMUNOLOGIST documented in this encounter Plan of Treatment Not on file documented as of this encounter Visit Diagnoses Diagnosis Right inguinal hernia- Primary Inguinal hernia without mention of obstruction or gangrene, unilateral or unspecified, (not specified as recurrent) documented in this encounter Care Teams Yacht Master Relationship Specialty Start Date End Date [facility], [facility] [address] [address] [place], [place] [id number] PCP - General 08/19/19 Britta Raya, CHASE Registered Nurse Cardiology 10/27/22 Adal Turner MD [address] [facility] [[email or web address] [address] [place], [place] [address] Assigned Heart and Vascular Provider 02/20/23 documented as of this encounter
--- OUTSIDE RECORDS SUMMARY | 2023-06-23 11:32 | XMS_ITS | Encounter Summary ---
Author Name Unknown Organization [place] Address [facility] [place] [address] Care Team Providers Care Senior Windows Systems Administrator Name Role Phone [facility] Primary Care Provide r Adal Turner MD Unavailable Britta Raya RN Unavailable Unavaila ble Encounter Details Date Type Department Care Team (Latest Contact Info) Description 11/27/2022 Travel Social History Tobacco Use Types Packs/Day [...] of Binge Drinking Not on file 08/2019 Sex and Gender Information Value Date Recorded Sex Assigned at Not on file Gender Identity Not on file Sexual Orientation Not on file COVID-19 Exposure Response Date Recorded In the last 10 days, have yo u been in contact with someone who was confirmed or suspected to have Coronavirus/COVID-19? No / Unsure 11/27/2022 10:45 AM CDT documented as of this encounter Plan of Treatment Not on file documented as of this encounter Visit Diagnoses Not on filedocumented in this encounter Care Teams Senior Windows Systems Administrator Relationship Specialty Start Date End Date [facility] [address] [place], [place] [phone] PCP - General 08/19/19 Adal Turner MD [address] [place] [address] Assigned Heart and Vascular Provider 11/01/21 02/05/23 Britta Raya, RN Registered Nurse Cardiology 10/27/22 documented as of this encounter
--- OUTSIDE RECORDS SUMMARY | 2023-06-23 11:32 | XMS_ITS | Encounter Summary ---
Author Name Unknown Organization [place] Address [address] [place] [address] Care Team Providers Care Liquor Commissioner Name Role Phone [facility] Primary Care Provide r Britta Raya RN Unavailable Unavaila Adal Soliz MD Unavailable Encounter Details Date Type Department Care Team (Latest Contact Info) Description 03/24/2023 Travel Social History Tobacco Use Types Packs/Day [...] on filedocumented in this encounter Care Teams Liquor Commissioner Relationship Specialty Start Date End Date [facility] [id number] [place] [phone] PCP - General 08/19/19 Britta Raya, CHASE Registered Nurse Cardiology 10/27/22 Adal Turner MD [address] [place] [address] Assigned Heart and Vascular Provider 02/20/23 documented as of this encounter
--- OUTSIDE RECORDS SUMMARY | 2023-06-23 11:32 | XMS_ITS | Encounter Summary ---
Author Name Unknown Organization [facility] Address [address] [place] [address] Care Team Providers Care Interventional Technologist Name Role Phone [facility] Primary Care Provide r Britta Raya RN Unavailable Unavaila Tristan Burnett NP Unavailable Reason for Referral * Consultation (Routine: Next available opening) - Pending Review Specialty Diagnoses / Procedures Referred By Julio burk Referred To Contact Pulmonary Disease Diagnoses Restrictive lung disease Adal Turner MD [address] [place] [address] Referral ID Status Reason Start Date Expiration Date V isits Requested Visits Authorized [id number] Pending Review 02/19/2023 02/19/2024 1 1 Scheduling Instructions celso Rivera friend [phone] Question Answer Reason for Referral: COPD Scheduling Instructions: [facility] will call you to coordinate your care as prescribed by the provider. If you don? t hear from a architectural representative within 2 business days, please call . Additional Information: celso Rivera friend to schedule [phone] Comments [phone] Please be aware that coverage of these services is subject to the terms and limitations of your health insurance plan. Call member services at your health plan with any benefit or coverage questions. [facility] will call you to coordinate your care as prescribed by the provider. If you don't hear from a architectural representative within 2 business days, please call . [facility] will call you to coordinate your care as prescribed by the provider. If you don? t hear from a architectural representative within 2 business days, please call . * Consultation (Routine: Next available opening) - Pending Review Specialty Diagnoses / Procedures [facility] Referred To Contact Cardiovascular Disease Diagnoses Ischemic cardiomyopathy Adal Turner MD [address], [facility] [place] [address] Referral ID Status Reason Start Date Expiration Date V isits Requested Visits Authorized [id number] Pending Review 02/19/2023 02/19/2024 1 1 Question Answer Follow-up with: [facility] Scheduling Instructions: [facility] will call you to coordinate your care as prescribed by your provider. If you have concerns about scheduling, please call [phone]. Comments [facility] will call you to coordinate your care as prescribed by your provider. If you have concerns about scheduling, please call [phone]. Reason for Visit * Reason Comments Follow Up Heart Failure Coronary Artery Disease * Consultation (Routine: Next available opening) - Pending Review Specialty Diagnoses / Procedures [facility] Referred To Contact Cardiovascular Disease Diagnoses Ischemic cardiomyopathy Adal Turner MD [address], [address] [place] [address] Referral ID Status Reason Start Date Expiration Date V isits Requested Visits Authorized [id number] Pending Review 07/29/2022 07/29/2023 1 1 Encounter Details Date Type Department Care Team (Latest Contact Info) Description 02/19/2023 3:45 PM CDT Office Visit [facility] [address] [place] [address] Adal Turner MD [address], [address] [place] [id number] Restrictive lung disease (Primary Dx); Ischemic cardiomyopathy Social History Tobacco Use Types Packs/Day Years Used Date Smoking Tobacco: Former Cigarettes Q uit: 05/17/1981 Smokeless Tobacco: Never Tobacco Cessation:Counseling Given: Not Answered Alcohol Use Standard Drinks/Week Comments Never 0 [...] PM CDT documented as of this encounter Last Filed Vital Signs Vital Sign Reading Time Taken Comments Blood Pressure 126/54 02/19/2023 3:48 PM CDT Pulse 55 02/19/2023 3:48 PM CDT Temperature - - Respiratory Rate - - Oxygen Saturation 98% 02/19/2023 3:48 PM CDT Inhaled Oxygen Concentration - - Weight 80.6 kg (177 lb 12.8 oz) 02/19/2023 3:48 PM CDT Height 180.3 cm (5' 11) 02/19/2023 3:48 PM CDT Body Mass Index 24.8 02/19/2023 3:48 PM CDT documented in this encounter Patient Instructions * Patient Instructions* Adal Turner MD - 02/19/2023 3:45 PM CDT Images from the original note were not included. February 19, 2023 Thank you for allowing our Cardiology team to participate in your care. Please note the following changes to your heart treatment plan: Medication changes: - none Tests to be done: - none Follow up: - Follow up in 6 months, or sooner as needed. - Referral to Pulmonology For scheduling, please call [phone]. Please contact our team through [employer] or our Nurse Team Voicemail service [phone], or the General Clinic [phone] for any questions or concerns. If you are having a medical emergency, please call 911. Sincerely, Adal Turner MD, [facility] Cardiology [facility] - [facility] and [facility] - [facility] - [place] documented in this encounter Progress Notes * Adal Turner MD - 02/19/2023 3:45 PM CDT Images from the original note were not included. Cardiology Clinic Progress Note: February 19, 2023 Patient Name: Ulises Delgado Patient Consult indication: CHF HPI: I had the opportunity to see patient Ulises Delgado in cardiology clinic for a follow up visit. Patient is followed by our colleague Shaun [facility] with Primary Care. As you know, patient Ulises Delgado is a pleasant 82-year-old male with a past medical history significant for coronary artery disease status post SANTOSH to the proximal LAD and proximal OM1 (08/29/2019),heart failure with reduced ejection fraction secondary to ischemic cardiomyopathy, qdqttomc-kq-bscqleqv-severe mitral regurgitation and nayz-rc-yorlvbri tricuspid regurgitation (TTE 09/29/2019), bilateral pleural effusions requiring bilateral thoracenteses (09/29/2019 during hospitalization for hypervolemia), CKD, diabetes, who presents for followup. I had seen patient in clinic 10/28/2021. At that time, we reviewed his health history, including hismitral valve regurgitation. We had recommended a TATIANA for reassessment, he expressed a desire to be conservative with his health care, stating if it is my time to go, it is my time to go. We had recommended interfacing with Palliative care in the past, however he declined this. Given his worseningrenal function, and persistent dyspnea on exertion that did not seem consistent with decompensated heart failure, we referred him to Nephrology and Pulmonology. He did not follow-up with these recommendations. He was then seen by my colleague Tono Patnoe MEDICAL OFFICE ADMINISTRATOR. Pulmonary function testing 03/30/2022 demonstratedmoderate restrictive lung disease. Since then, unfortunately he was hospitalized with acute hypoxic respiratory failure secondary to pneumonia, bronchitis, also some contribution from mildly decompensated heart failure. TTE 2demonstrated LVEF 30 to 35%, anterior, septal, apical wall hypokinesis, inferolateral wall hypokinesis, moderate MR, moderate to severe pulmonary hypertension, mild aortic insufficiency. It was recommended that he be discharged to a TCU, however he declined this. It was recommended that he follow-up with Pulmonology, however this has not yet been scheduled. Today, he is accompanied by his caregiver/friend, who has accompanied him at all of his visits. Patient still has significant dyspnea, though continues to live independently. She does check in with him frequently. Denies any chest pain, chest pressure, dyspnea is stable. Was very active is in his younger years, worked in the trades, with a [employer] and served on a [employer] ship. Assessment and Plan/Recommendations: # Dyspnea on exertion. Clinical presentation does not seem characteristic of decompensated heart failure, suspect this is related to restrictive lung disease. # HFrEF 2/2 ICM. Stable, euvolemic. Weight down to 177 pounds, was around 199 pounds at clinic visit 07/29/2022. # Mod MR # Coronary artery disease, recent NSTEMI status post PCI to proximal LAD and proximal OM1 08/29/2019. Denies symptoms concerning for angina. # CHAD on CKD, Followed by Nephrology # Diabetes. -Patient has consistently declined further cardiac testing, invasive procedures, expressing sentiment such as what it is my time to , will be my time. 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, and stays active now with his home, despite his overall age and frailty, was able to replace his water heater on his own building a uma system to bring this to his basement - We have consistently recommended referral to Palliative care, revisited this today, patient declines this, though he declines most testing, and is adamant that he does not want to return to the hospital under any circumstances - Declines further cardiac testing - We will refer him to Pulmonology for further management of restrictive lung disease, may be a candidate for home oxygen - Continue current regimen of aspirin, carvedilol, clopidogrel, hydralazine, Imdur, torsemide - Follow-up with cardiology [facility] in 6 months, or sooner as needed Thank you for allowing our team to participate in the care of Ulises Delgado. Please do not hesitate to call or page me with any questions or concerns. Sincerely, Adal Turner MD, [facility] Cardiology Text Page February 19, 2023 cc Adal Turner MD [address] [facility] [address] [place] [address] Voice recognition software utilized. Total time spent on this encounter today: 33 minutes, providing care in this encounter including, but not limited to, reviewing prior medical records, laboratory data, imaging studies, diagnostic studies, procedure notes, formulating an assessment and plan, recommendations, discussion and counseling with patient face to face, dictation. Past Medical History: Past Medical History: Diagnosis Date Asbestosis (H) CHF (congestive heart failure) (H) Chronic renal insufficiency NSTEMI (non-ST elevated myocardial infarction) (H) Type II diabetes mellitus (H) Past Surgical History: Past Surgical History: Procedure Laterality Date CV CORONARY ANGIOGRAM N/A 08/23/2019 Procedure: Coronary Angiogram; Surgeon: Karlos Sprague MD; Location: [facility] CV LEFT HEART CATH N/A 08/23/2019 Procedure: Left Heart Cath; Surgeon: Karlos Sprague MD; Location: [facility]ARDI[facility] CV LEFT HEART CATH N/A 08/29/2019 Procedure: Left Heart Cath; Surgeon: Danish Allred MD; Location: [facility]ARDI[facility] PROC[facility] CV PCI STENT DRUG ELUTING N/A 08/29/2019 Procedure: Percutaneous Coronary Intervention Stent Drug Eluting; Surgeon: Danish Allred MD; Location: HE[facility]ARDIAC [facility] PROC[facility] CV RIGHT HEART CATH MEASUREMENTS RECORDED N/A 08/23/2019 Procedure: Right Heart Cath; Surgeon: Karlos Sprague MD; Location: [facility]ARDI[facility] Medications (outpatient): Current Outpatient Medications Medication Sig Dispense Refill atorvastatin (LIPITOR) 40 MG tablet Take 1 tablet (40 mg) by mouth every evening 90 tablet 3 carvedilol (COREG) 3.125 MG tablet Take 1 tablet (3.125 mg) by mouth 2 times daily (with meals) 180tablet 3 clopidogrel (PLAVIX) 75 MG tablet Take 1 tablet (75 mg) by mouth daily 90 tablet 3 fish oil-omega-3 fatty acids 1000 MG capsule Take 1 g by mouth daily glipiZIDE (GLUCOTROL XL) 5 MG 24 hr tablet Take 5 mg by mouth daily Take 1 tablet with breakfast Glucosamine HCl (GLUCOSAMINE PO) Take 1,500 mg by mouth 2 times daily hydrALAZINE (APRESOLINE) 25 MG tablet Take 1 tablet (25 mg) by mouth 3 times daily 270 tablet 3 isosorbide mononitrate (IMDUR) 30 MG 24 hr tablet Take 1 tablet (30 mg) by mouth daily At night 90 tablet 3 Multiple Vitamins-Minerals (PRESERVISION AREDS PO) Take 1 tablet by mouth 2 times daily multivitamin w/minerals (THERA-VIT-M) tablet Take 1 tablet by mouth daily torsemide (DEMADEX) 10 MG tablet Take 2 tablets (20 mg) by mouth daily Vitamin D3 (CHOLECALCIFEROL) 125 MCG (5000 UT) tablet Take 1 tablet by mouth daily albuterol (PROVENTIL) (2.5 MG/3ML) 0.083% neb solution Inhale 3 mL (2.5 mg) via a nebulizer every 4hours if needed for Shortness Of Breath or Cough.* alcohol swab prep pads Use to swab area of injection/trish as directed. 100 each 3 blood glucose (NO BRAND SPECIFIED) test strip Use to test blood sugar 4 times daily or as directed.100 strip 1 blood glucose calibration (NO BRAND SPECIFIED) solution Use to calibrate blood glucose monitor as needed as directed. 1 Bottle 3 blood glucose monitoring (NO BRAND SPECIFIED) meter device kit Use to test blood sugar 4 times daily or as directed. 1 kit 0 nitroGLYcerin (NITROSTAT) 0.4 MG sublingual tablet For chest pain place 1 tablet under the tongue every 5 minutes for 3 doses. If symptoms persist 5 minutes after 1st dose call 911. (Patient not taking: Reported on 02/19/2023) 25 tablet 0 psyllium (METAMUCIL/KONSYL) Packet Take 1 packet by mouth daily as needed for constipation 15 packet 0 thin (NO BRAND SPECIFIED) lancets Use with lanceting device. 200 each 1 Allergies: Allergies Allergen Reactions Penicillins Hives Social History: History Drug Use Unknown History Smoking Status Former Types: Cigarettes Quit date: 05/17/1981 Smokeless Tobacco Never Social History Substance and Sexual Activity Alcohol use: Never Family History: History reviewed. No pertinent family history. Review of Systems: A complete review of systems was negative except as mentioned in the History of Present Illness. Objective & Physical Exam: BP 126/54 (BP Location: Right arm, Patient Position: Sitting, Cuff Size: Adult Regular) Pulse 55 Ht 1.803 m (5' 11) Wt 80.6 kg (177 lb 12.8 oz) SpO2 98% BMI 24.80 kg/m?? Wt Readings from Last 2 Encounters: 02/19/23 80.6 kg (177 lb 12.8 oz) 11/06/22 85.1 kg (187 lb 11.2 oz) Body mass index is 24.8 kg/m??. Body surface area is 2.01 meters squared. Constitutional: appears stated age, in no apparent distress, dyspneic when speaking Head: normocephalic, atraumatic Neck: supple, trachea midline Pulmonary: no rales Cardiovascular: JVP normal, regular rate, regular rhythm, normal S1 and S2, no S3, S4, no murmur appreciated, no lower extremity edema Gastrointestinal: no guarding, non-rigid Neurologic: awake, alert, moves all extremities Skin: no jaundice, warm on limited exam Psychiatric: affect is normal, answers questions appropriately, oriented to self and place Data reviewed: Lab Results Component Value Date WBC 5.8 05/16/2022 WBC 6.6 09/29/2019 RBC 3.23 (L) 05/16/2022 RBC 3.48 (L) 09/29/2019 HGB 8.5 (L) 05/16/2022 HGB 10.0 (L) 09/29/2019 HCT 29.8 (L) 05/16/2022 HCT 32.9 (L) 09/29/2019 MCV 92 05/16/2022 MCV 95 09/29/2019 MCH 26.3 (L) 05/16/2022 MCH 28.7 09/29/2019 MCHC 28.5 (L) 05/16/2022 MCHC 30.4 (L) 09/29/2019 RDW 15.9 (H) 05/16/2022 RDW 15.9 (H) 09/29/2019 PLT 371 05/19/2022 PLT 243 09/29/2019 Sodium Date Value Ref Range Status 11/27/2022 141 136 - 145 mmol/L Final 11/05/2020 139 133 - 144 mmol/L Final Potassium Date Value Ref Range Status 11/27/2022 5.0 3.4 - 5.3 mmol/L Final 09/16/2021 4.3 3.4 - 5.3 mmol/L Final 11/05/2020 4.3 3.4 - 5.3 mmol/L Final Chloride Date Value Ref Range Status 11/27/2022 110 (H) 98 - 107 mmol/L Final 09/16/2021 110 (H) 94 - 109 mmol/L Final 11/05/2020 108 94 - 109 mmol/L Final Carbon Dioxide Date Value Ref Range Status 11/05/2020 26 20 - 32 mmol/L Final Carbon Dioxide (CO2) Date Value Ref Range Status 11/27/2022 20 (L) 22 - 29 mmol/L Final 09/16/2021 23 20 - 32 mmol/L Final Anion Gap Date Value Ref Range Status 11/27/2022 11 7 - 15 mmol/L Final 09/16/2021 6 3 - 14 mmol/L Final 11/05/2020 5 3 - 14 mmol/L Final Glucose Date Value Ref Range Status 11/27/2022 104 (H) 70 - 99 mg/dL Final 09/16/2021 69 (L) 70 - 99 mg/dL Final 11/05/2020 95 70 - 99 mg/dL Final GLUCOSE BY METER POCT Date Value Ref Range Status 05/19/2022 190 (H) 70 - 99 mg/dL Final Urea Nitrogen Date Value Ref Range Status 11/27/2022 60.4 (H) 8.0 - 23.0 mg/dL Final 09/16/2021 48 (H) 7 - 30 mg/dL Final 11/05/2020 32 (H) 7 - 30 mg/dL Final Creatinine Date Value Ref Range Status 11/27/2022 2.51 (H) 0.67 - 1.17 mg/dL Final 11/05/2020 1.64 (H) 0.66 - 1.25 mg/dL Final GFR Estimate Date Value Ref Range Status 11/27/2022 25 (L) >60 mL/min/1.73m2 Final 11/05/2020 39 (L) >60 mL/min/[1.73_m2] Final Comment: Non GFR Calc Starting 05/03/2018, serum creatinine based estimated GFR (eGFR) will be calculated using the Chronic Kidney Disease Epidemiology Collaboration (CKD-EPI) equation. Calcium Date Value Ref Range Status 11/27/2022 9.1 8.8 - 10.2 mg/dL Final 11/05/2020 9.0 8.5 - 10.1 mg/dL Final Bilirubin Total Date Value Ref Range Status 05/11/2022 0.7 <=1.2 mg/dL Final 09/28/2019 0.8 0.2 - 1.3 mg/dL Final Alkaline Phosphatase Date Value Ref Range Status 05/11/2022 66 40 - 129 U/L Final 09/28/2019 75 40 - 150 U/L Final ALT Date Value Ref Range Status 05/11/2022 14 10 - 50 U/L Final 10/10/2020 16 0 - 70 U/L Final AST Date Value Ref Range Status 05/11/2022 14 10 - 50 U/L Final 09/28/2019 16 0 - 45 U/L Final Recent Labs Lab Test 05/12/21 0831 10/10/20 0847 CHOL 86 94 HDL 30* 34* LDL 37 44 TRIG 96 80 Lab Results Component Value Date A1C 8.6 08/20/2019 documented in this encounter Plan of Treatment Scheduled Referrals Name Type Priority Associated Diagnoses Orde r Schedule Follow-Up with Cardiology [facility] Referral Routine: Next available opening Ischemic cardiomyopathy Expected: 08/21/2023 (Approximate), Expires: 02/20/2024 Adult Pulmonary Medicine Cigar Head Puncher Referral Referral Routine: Next available opening Restrictive lung disease Expected: 02/19/2023 (Approximate), Expires: 02/18/2025 documented as of this encounter Visit Diagnoses Diagnosis Restrictive lung disease- Primary Other diseases of lung, not elsewhere classified Ischemic cardiomyopathy Other specified forms of chronic ischemic heart disease documented in this encounter Care Teams Interventional Technologist Relationship Specialty Start Date End Date [facility] [id number] [place] [id number] PCP - General 08/19/19 Britta Raya RN Registered Nurse Cardiology 10/27/22 Tristan Valdez NP [address] [address] Assigned Heart and Vascular Provider 02/06/23 02/19/23 documented as of this encounter
--- OUTSIDE RECORDS SUMMARY | 2023-06-23 11:32 | XMS_ITS | Encounter Summary ---
Author Name Unknown Organization [place] Address [address] [place] [address] Care Team Providers Care Appeals Officer Name Role Phone [facility] Primary Care Provide r Adal Turner MD Unavailable Britta Raya RN Unavailable Unavaila ble Reason for Referral * Consultation (Routine: Next available opening) - Pending Review Specialty Diagnoses / Procedures Referred By Contjosé luis t Referred To Contact Hospice And Palliative Care Diagnoses Chronic systolic congestive heart failure (H) Ischemic cardiomyopathy CKD (chronic kidney disease) stage 4, GFR 15-29 ml/min (H) Tristan Salomon, KIERAN [address] [place] [address] [facility] [address] [place] [address] Referral ID Status Reason Start Date Expiration Date V isits Requested Visits Authorized [id number] Pending Review 12/01/2022 12/01/2023 1 1 Question Answer Reason for Referral: Explore goals of care What is the patient's prognosis? Poor What is the patient's life-limiting diagnosis? Ischemic cardiomyopathy chronic HFrEF; CKD stage IIIb? IV Preferred Location: [facility] Scheduling Instructions: Please call to schedule your appointment Comments Please be aware that coverage of these services is subject to the terms and limitations of your health insurance plan. Call member services at your health plan with any benefit or coverage questions. Palliative Care Definition: Palliative Care is specialized medical care for people with serious illness. This type of care is focused on providing patients with relief from symptoms, pain and stresses of serious illness - whatever the diagnosis may be. The goal of Palliative Care is to improve quality of life for both the patient and the family. Palliative Care is provided by a team of doctors, nurses and other specialists who work with the patient's other doctors to provide an extra layer of support. Palliative Care is appropriate at any age and at any stage in a serious illness, and can be provided together with curative treatment. [facility] Palliative [facility] Please call to schedule your appointment Reason for Visit * Reason Onset Date Comments Results 11/27/2022 BMP Encounter Details Date Type Department Care Team (Late st Contact Info) Description 11/27/[address] [place] [address] Britta Raya RN Results (BMP) Social History Tobacco Use Types Packs/Day Years [...] AM CDT documented as of this encounter Miscellaneous Notes * Telephone Encounter - Maria Esther Randle RN - 12/01/2022 12:47 PM CDT [facility] C.O.R.E [facility] See 11/23/22 Encounter. I called Danelle and confirmed she received CHASE Peraza's VM with Tono Salomon [employer] recommendations. Called and spoke to Danelle on CTC. She states she received VM yesterday from CHASE Peraza (see 11/27/22 encounter). ?? Recommendations per Tono Salomon CNP were reviewed with pt's caregiver via VM on 11/30/22 in alternative encounter. 1. BMP reviewed and stable from previous BMPs. 2. Continue Torsemide 20 mg once daily. 3. Recommend restarting Plavix 75 mg once daily given history of CAD. Encourage monitoring of nose bleeds and dark stools. 4. Encouraged follow-up with Palliative to discuss goals of care and other possible potential options for symptom management. ?? Danelle reports they are continuing the torsemide at 20mg/ daily. She also confirms they resumed the plavix 75mg/ daily yesterday. She states that Ulises had not had any nose bleeds during the plavixhold and remains without nose bleeds currently, she will call if changes occur. Message routed to Tono Salomon CNP to reorder palliative referral as order was canceled as they could not get a hold of patient. Maria Esther Randle RN, BSN [place], [place] C.O.R.E. Clinic Quarter Supervisor December 01, 2022 12:51 PM * Telephone Encounter - Karmen Hayes RN - 12/01/2022 10:28 AM CDT Images from the original note were not included. Noted in referrals that Palliative referral order was cancelled for no answer or all back to make appt. NICK Hutchison, RN 10:28 AM 12/01/22 * Telephone Encounter - Karmen Hayes RN - 11/30/2022 3:14 PM CDT Called Danelle (no answer left voice mail) with recommendations per Tono: 1. BMP reviewed and stable from previous BMPs. 2. Continue Torsemide 20 mg once daily. 3. Recommend restarting Plavix 75 mg once daily given history of CAD. Encourage monitoring of nose bleeds and dark stools. 4. Encouraged follow-up with Palliative to discuss goals of care and other possible potential options for symptom management. Asked for a call back confirmation and if has questions. Scheduling - please call Danelle to set up Palliative Care office visit. Future Appointments Date Time Provider Department Center 02/19/2023 3:45 PM Adal Turner MD [facility] NICK Hutchison, RN 3:20 PM 11/30/22 * Telephone Encounter - Tristan Salomon NP - 11/30/2022 1:55 PM CDT BMP results noted and overall appear stable near the patient's recent baseline. Can continue on torsemide 20 mg once daily. Recommend a trial of restarting Plavix 75 mg once daily given his history of CAD and continue to monitor for issues with epistaxis and call if this occurs. Unfortunate that hecontinues to feel about the same in terms of his shortness of breath. Given the patient's complex history, somewhat limited options for management due to his CKD, and patient's preference for conservative management, recommend that he see the palliative care team as previously discussed to discuss goals of care and some potential options to help with symptom management for him. Thank you! * Telephone Encounter - Britta Raya RN - 11/27/2022 3:12 PM CDT [facility] Called pt to follow up on sx and wt after today's BMP level drawn. Called pt's caregiver Danelle (CTC on file) to request update on wt and sx and confirm torsemide dose. She reports his breathing is about the same, no change, still gets winded fairly fast. She also notes he hasn't has any further nose bleeds since holding clopidogrel since 11/23/22 (see encounter 11/23 for further details). Confirmed should continue torsemide 20 mg daily and will call back on Mon once Tono Salomon CNP reviews. She voices understanding and denies further questions or concerns at this time. Component Latest Ref Rng 11/27/2022 10:49 AM Sodium 136 - 145 mmol/L 141 Potassium 3.4 - 5.3 mmol/L 5.0 Chloride 98 - 107 mmol/L 110 (H) Carbon Dioxide (CO2) 22 - 29 mmol/L 20 (L) Anion Gap 7 - 15 mmol/L 11 Urea Nitrogen 8.0 - 23.0 mg/dL 60.4 (H) Creatinine 0.67 - 1.17 mg/dL 2.51 (H) Calcium 8.8 - 10.2 mg/dL 9.1 Glucose 70 - 99 mg/dL 104 (H) GFR Estimate >60 mL/min/1.73m2 25 (L) Chart Reviewed: -- 11/06/22: KIA w/ Tono Salomon CNP in [place]. continues to struggle w/ [place]. Ges winded walking 50-100 ft and has to stop to catch his breath. SOB at rest worsening over past couple of weeks. Has occasional orthopnea. Wt: 187 lbs. CXR, BMP completed. Increase torsemide dose to 20 mg daily x 3 days (from 10 mg daily) d/t sx and rise in NT pro BNP levels. Palliative referral placed (not scheduled). -- per Tono Salomon CNP. -- 11/09/22: Sx unchanged after 3 days of extra torsemide. Wt 188 lbs. Continue torsemide 20 mg daily and repeat BMP in 1 week (scheduled 11/27/22). Future Appointments Date Time Provider Department Center 02/19/2023 3:45 PM Adal Turner MD [facility] Britta Raya RN [place], [place] C.O.R.E. Clinic Quarter Supervisor 11/27/22, 3:16 PM * Addendum Note - Tristan Salomon NP - 11/27/2022 3:12 PM CDTAddended by: TRISTAN SALOMON on: 12/01/2022 01:04 PM Modules accepted: Orders documented in this encounter Plan of Treatment Scheduled Referrals Name Type Priority Associated Diagnoses Orde r Schedule Palliative Care Referral Referral Routine: Next available opening Chronic systolic congestive heart failure (H) Ischemic cardiomyopathy CKD (chronic kidney disease) stage 4, GFR 15-29 ml/min (H) Expected: 12/01/2022 (Approximate), Expires: 11/30/2024 documented as of this encounter Visit Diagnoses Diagnosis Chronic systolic congestive heart failure (H)- Primary Chronic systolic heart failure Ischemic cardiomyopathy Other specified forms of chronic ischemic heart disease CKD (chronic kidney disease) stage 4, GFR 15-29 ml/min (H) Chronic kidney disease, Stage IV (severe) documented in this encounter Care Teams Appeals Officer Relationship Specialty Start Date End Date [facility] [address] [place], [place] [phone] PCP - General 08/19/19 Adal Turner MD [address] [facility] [address] [place] [address] Assigned Heart and Vascular Provider 11/01/21 02/05/23 Britta Raya, RN Registered Nurse Cardiology 10/27/22 documented as of this encounter
--- OUTSIDE RECORDS SUMMARY | 2023-06-23 11:32 | XMS_ITS | Encounter Summary ---
Author Name Unknown Organization [place] Address [address] [facility] [place] [address] Care Team Providers Care Electronic Calibration Technician Name Role Phone [facility], [facility] Primary Care Provide r Britta Raya RN Unavailable Unavaila Adal Soliz MD Unavailable Reason for Visit * Reason Comments Urgent Care Itchy dry rash on le ft side of trunk x 4d. No improvement with OTC HC. Encounter Details Date Type Department Care Team (Late st Contact Info) Description 03/19/2023 5:00 PM CDT Office Visit [facility] [place] [id number] [place] [phone] Kena Arrieta, JOSE DE JESUS Pruritic erythematous rash (Primary Dx) Social History Tobacco Use Types [...] Recorded In the last 10 days, have jonathan watkins been in contact with someone who was confirmed or suspected to have Coronavirus/COVID-19? No / Unsure 02/19/2023 3:07 PM CDT documented as of this encounter Last Filed Vital Signs Vital Sign Reading Time Taken Comments Blood Pressure 132/61 03/19/2023 5:36 PM CDT Pulse 61 03/19/2023 5:36 PM CDT Temperature 36.4 ??C (97.5 ??F) 03/19/2023 5:36 PM CD T Respiratory Rate - - Oxygen Saturation 98% 03/19/2023 5:36 PM CDT Inhaled Oxygen Concentration - - Weight 79.4 kg (175 lb) 03/19/2023 5:36 PM CDT Height 180.3 cm (5' 11) 03/19/2023 5:36 PM CDT Body Mass Index 24.41 03/19/2023 5:36 PM CDT documented in this encounter Patient Instructions * Patient Instructions* Kena Arrieta PA-C - 03/19/2023 5:00 PM CDT Take Zyrtec at night daily to help with itching. Use steroid cream twice a day to help itching. If you are not improving please follow up with your doctor. documented in this encounter Progress Notes * Kena Arrieta PA-C - 03/19/2023 5:00 PM CDT Assessment & Plan: ICD-10-CM 1. Pruritic erythematous rash L29.8 cetirizine (ZYRTEC) 10 MG tablet triamcinolone (KENALOG) 0.1 % external cream Plan/Clinical Decision Making: Patient with faint erythematous rash on left torso for 4 days. Unsure of exact etiology. Having a bit of pruritus. Will treat with steroid cream and Zyrtec. Patient Instructions Take Zyrtec at night daily to help with itching. Use steroid cream twice a day to help itching. If you are not improving please follow up with your doctor. Return if symptoms worsen or fail to improve, for in 3-5 days. At the end of the encounter, I discussed results, diagnosis, medications. Discussed red flags for immediate return to clinic/ER, as well as indications for follow up if no improvement. Patient understood and agreed to plan. Patient was stable for discharge. Kena Arrieta PA-C on 03/19/2023 at 6:18 PM Subjective: HPI: Ulises is a 82 year old male who presents to clinic today for the following health issues: Chief Complaint Patient presents with Urgent Care Itchy dry rash on left side of trunk x 4d. No improvement with OTC HC. HPI Rash left trunk. No fever, no recent illness. Rash very itchy. Had hydrocortisone for this and helps initially, but persistent. Tried calamine, didn't work. No new products, no new medications. Had covid vaccine a couple weeks ago. No travel. Had rash like this in April when hospitalized. Not investigated at that time due to a variety ofother health concerns during hospitalization for respiratory failure with CHF, pneumonia. Has CKD and followed by [employer]eles[employer] representative. I reviewed patient's ED discharge summary. Review of Systems Constitutional: Negative for fever. HENT: Negative for congestion, rhinorrhea and sore throat. Respiratory: Negative for cough. Gastrointestinal: Negative for vomiting. Patient Active Problem List Diagnosis Ischemic cardiomyopathy ACS (acute coronary syndrome) (H) CHF (congestive heart failure) (H) Diabetes mellitus, type 2 (H) CKD (chronic kidney disease) stage 4, GFR 15-29 ml/min (H) Myocardial injury Acute on chronic systolic congestive heart failure (H) Pneumonia of both lungs due to infectious organism, unspecified part of lung Type 2 diabetes mellitus with stage 4 chronic kidney disease, unspecified whether watermaster insulinuse (H) Past Medical History: Diagnosis Date Asbestosis (H) CHF (congestive heart failure) (H) Chronic renal insufficiency NSTEMI (non-ST elevated myocardial infarction) (H) Type II diabetes mellitus (H) Social History Tobacco Use Smoking status: Former Types: Cigarettes Quit date: 05/17/1981 Years since quittin.8 Smokeless tobacco: Never Substance Use Topics Alcohol use: Never Objective: Vitals: 03/19/23 1736 BP: 132/61 Pulse: 61 Temp: 97.5 ??F (36.4 ??C) TempSrc: Oral SpO2: 98% Weight: 79.4 kg (175 lb) Height: 1.803 m (5' 11) Physical Exam EXAM: Pleasant, alert, appropriate appearance. NAD. Head Exam: Normocephalic, atraumatic. Chest/Respiratory Exam: CTAB. Cardiovascular Exam: RRR Skin: Left torso with very faint erythematous macular rash. Results: No results found for any visits on 03/19/23. SHAKER documented in this encounter Plan of Treatment Not on file documented as of this encounter Visit Diagnoses Diagnosis Pruritic erythematous rash- Primary Other specified pruritic conditions documented in this encounter Care Teams Electronic Calibration Technician Relationship Specialty Start Date End Date [facility] [address] [place], [place] [phone] PCP - General 08/19/19 Britta Raya, RN Registered Nurse Cardiology 10/27/22 Adal Turner MD [address] [facility] [address] [place] [address] Assigned Heart and Vascular Provider 02/20/23 documented as of this encounter
--- OUTSIDE RECORDS SUMMARY | 2023-06-23 11:33 | XMS_ITS | Encounter Summary ---
Author Name Unknown Organization [place] Address [facility] [place] [address] Care Team Providers Care Ginseng Farmer Name Role Phone [facility] Primary Care Provide r Adal Turner MD Unavailable Britta Raya RN Unavailable Unavaila ble Encounter Details Date Type Department Care Team (Latest Contact Info) Description 11/06/2022 Travel Social History Tobacco Use Types Packs/Day [...] suspected to have Coronavirus/COVID-19? No / Unsure 11/06/2022 1:58 PM CDT documented as of this encounter Plan of Treatment Not on file documented as of this encounter Visit Diagnoses Not on filedocumented in this encounter Care Teams Ginseng Farmer Relationship Specialty Start Date End Date [facility] [address] [place], [place] [phone] PCP - General 08/19/19 Adal Turner MD [address] [place] [address] Assigned Heart and Vascular Provider 11/01/21 02/05/23 Britta Raya, RN Registered Nurse Cardiology 10/27/22 documented as of this encounter
--- OUTSIDE RECORDS SUMMARY | 2023-06-23 11:33 | XMS_ITS | Encounter Summary ---
Author Name Unknown Organization [facility] Address [address] [place] [address] Care Team Providers Care Curtain Hemmer Automatic Name Role Phone [facility], [facility] Primary Care Provide r Adal Turner MD Unavailable Reason for Referral * Consultation (Routine: Next available opening) - Pending Review Specialty Diagnoses / Procedures Referred By Julio t Referred To Contact Cardiovascular Disease Diagnoses Ischemic cardiomyopathy Adal Turner MD [address] [address] Referral ID Status Reason Start Date Expiration Date V isits Requested Visits Authorized [id number] Pending Review 07/29/2022 07/29/2023 1 1 Question Answer Follow-up with: Self Scheduling Instructions: [facility] will call you to coordinate your care as prescribed by your provider. If you have concerns about scheduling, please call [phone]. Comments [facility] will call you to coordinate your care as prescribed by your provider. If you have concerns about scheduling, please call [phone]. * Consultation (Routine: Next available opening) - Pending Review Specialty Diagnoses / Procedures Referred By Contjosé luis t Referred To Contact Cardiovascular Disease Diagnoses Ischemic cardiomyopathy Adal Turner MD [address], [address] [place] [address] Referral ID Status Reason Start Date Expiration Date V isits Requested Visits Authorized [id number] Pending Review 07/29/2022 07/29/2023 1 1 Question Answer Follow-up with: [facility] - Tono Valdez Scheduling Instructions: [facility] will call you to coordinate your care as prescribed by your provider. If you have concerns about scheduling, please call [phone]. Comments [facility] will call you to coordinate your care as prescribed by your provider. If you have concerns about scheduling, please call [phone]. Reason for Visit * Reason Comments Follow Up * Consultation (Routine: Next available opening) - Closed Specialty Diagnoses / Procedures Referred By Contac t Referred To Contact Cardiovascular Disease Diagnoses Chronic systolic congestive heart failure (H) Ischemic cardiomyopathy Shortness of breath Tristan Valdez NP [address] [address] Referral ID Status Reason Start Date Expiration Date Visits Re quested Visits Authorized [id number] Closed 03/13/2022 03/13/2023 1 1 Encounter Details Date Type Department Care Team (Latest Contact Info) Description 07/29/2022 2:15 PM CDT Office Visit [facility] [address] [place] [address] Adal Turner MD [address], [address] [place] [id number] Ischemic cardiomyopathy (Primary Dx); Chronic systolic congestive heart failure (H); Mitral valve insufficiency, unspecified etiology; Restrictive lung disease; ACS (acute coronary syndrome) (H) Social History Tobacco Use Types Packs/Day Years [...] suspected to have Coronavirus/COVID-19? No / Unsure 07/29/2022 1:16 PM CDT documented as of this encounter Last Filed Vital Signs Vital Sign Reading Time Taken Comments Blood Pressure 144/80 07/29/2022 2:16 PM CDT Pulse 75 07/29/2022 2:16 PM CDT Temperature - - Respiratory Rate - - Oxygen Saturation 96% 07/29/2022 2:16 PM CDT Inhaled Oxygen Concentration - - Weight 90.7 kg (199 lb 14.4 oz) 07/29/2022 2:16 PM CDT Height 181.6 cm (5' 11.5) 07/29/2022 2:16 PM CD T Body Mass Index 27.49 07/29/2022 2:16 PM CDT documented in this encounter Patient Instructions * Patient Instructions* Adal Turner MD - 07/29/2022 2:15 PM CDT Images from the original note were not included. July 29, 2022 Thank you for allowing our Cardiology team to participate in your care. Please note the following changes to your heart treatment plan: Medication changes: - albuterol inhaler as needed Tests to be done: - none Follow up: - Follow up with Pulmonology - Follow up with Nephrology - Follow up with Tono Valdez NP in 3 months and with me in 6 months, or sooner as needed. For scheduling, please call [phone]. Please contact our team at [phone] (Carina STONE) or [phone] for any questions or concerns. If you are having a medical emergency, please call [phone]. Sincerely, Adal Turner MD, [facility] Cardiology [facility] and [facility] and [facility] [place] documented in this encounter Progress Notes * Adal Turner MD - 07/29/2022 2:15 PM CDT Images from the original note were not included. Cardiology Clinic Progress Note: July 29, 2022 Patient Name: Kavin Delgado Patient Consult indication: CHF HPI: I had the opportunity to see patient Kavin Delgado in cardiology clinic for a follow up visit. Patient is followed by our colleagues at [facility] with Primary Care. As you know, patient Kavin Delgado is an 82-year-old male with a past medical history significant for coronary artery disease status post SANTOSH to the proximal LAD and proximal OM1 (08/29/2019), heart failure with reduced ejection fraction secondary to ischemic cardiomyopathy, rywefyll-zx-jecrflth-severe mitral regurgitation and alam-pg-wjpoicha tricuspid regurgitation (TTE 09/29/2019), bilateral pleural effusions requiring bilateral thoracenteses (09/29/2019 during hospitalization for hypervolemia), CKD, diabetes,??who presents for followup.?? I had seen patient in clinic 10/28/2021. [...] was then seen by my colleague Tono Valdez NP. Pulmonary function testing 03/30/2022 demonstratedmoderate restrictive lung [...] She does check in with him frequently. Despite his dyspnea, and overall weakness, he is still able to maintain his property with light snow shoveling. He has occasional chest discomfort, stable from before, primary complainttoday is generalized weakness. Assessment and Plan/Recommendations: # Dyspnea on exertion. Clinical presentation does not seem characteristic of decompensated heart failure, suspect this is related to his recent pneumonia, as well as restrictive lung disease. # HFrEF 2/2 ICM. Stable, euvolemic. # ??Mod MR #?Coronary artery disease, recent NSTEMI status post PCI to proximal LAD and proximal OM1 08/29/2019.?Denies symptoms concerning for angina. #?CHAD on CKD, Followed by Nephrology #?Diabetes.?? -Given persistent dyspnea and significant weakness, recommended transfer to ED. Patient declines this, stating when it is my time to , it will be no great loss, citing his ailing health including worsening hearing, eyesight, strength. Recommended he refrain from driving and to discuss with hisPCP. - Recommended Palliative care referral, patient declines this. - Declines further ischemic evaluation - Will prescribe albuterol since it seemed to have helped while he was in the hospital, placed another referral to Pulmonology - Continue current regimen of carvedilol, clopidogrel, atorvastatin, torsemide, Imdur, hydralazine - Follow-up with my colleague Tono aVldez NP in 3 months and with me in 6 months, or sooner as needed Thank you for allowing our team to participate in the care of Kavin Delgado. Please do not hesitate to call or page me with any questions or concerns. Sincerely, Adal Turner MD, [facility] Cardiology Text Page July 29, 2022 cc Tristan Valdez NP [address] [address] Voice recognition software utilized. Total time spent on this encounter: 45 minutes, providing care in this encounter including, but notlimited to, reviewing prior medical records, laboratory data, imaging studies, diagnostic studies, procedure notes, formulating an assessment and plan, recommendations, discussion and counseling withpatient face to face, dictation. Past Medical History: Past Medical History: Diagnosis Date ??? Asbestosis (H) ??? CHF (congestive heart failure) (H) ??? Chronic renal insufficiency ??? NSTEMI (non-ST elevated myocardial infarction) (H) ??? Type II diabetes mellitus (H) Past Surgical History: Past Surgical History: Procedure Laterality Date ??? CV CORONARY ANGIOGRAM N/A 08/23/2019 Procedure: Coronary Angiogram; Surgeon: Karlos Sprague MD; [facility] ??? CV LEFT HEART CATH N/A 08/23/2019 Procedure: Left Heart Cath; Surgeon: Karlos Sprague MD; Location: [facility] ??? CV LEFT HEART CATH N/A 08/29/2019 Procedure: Left Heart Cath; Surgeon: Danish Allred MD; Location: [facility] ??? CV PCI STENT DRUG ELUTING N/A 08/29/2019 Procedure: Percutaneous Coronary Intervention Stent Drug Eluting; Surgeon: Danish Allred MD; Location: [facility] ??? CV RIGHT HEART CATH MEASUREMENTS RECORDED N/A 08/23/2019 Procedure: Right Heart Cath; Surgeon: Karlos Sprague MD; Location: [facility] Medications (outpatient): Current Outpatient Medications Medication Sig Dispense Refill ??? albuterol (PROVENTIL) (2.5 MG/3ML) 0.083% neb solution Take 1 vial (2.5 mg) by nebulization every 6 hours as needed for shortness of breath, wheezing or cough 90 mL 1 ??? alcohol swab prep pads Use to swab area of injection/trish as directed. 100 each 3 ??? atorvastatin (LIPITOR) 40 MG tablet Take 1 tablet (40 mg) by mouth every evening 90 tablet 3 ??? blood glucose (NO BRAND SPECIFIED) test strip Use to test blood sugar 4 times daily or as directed. 100 strip 1 ??? blood glucose calibration (NO BRAND SPECIFIED) solution Use to calibrate blood glucose monitor as needed as directed. 1 Bottle 3 ??? blood glucose monitoring (NO BRAND SPECIFIED) meter device kit Use to test blood sugar 4 times daily or as directed. 1 kit 0 ??? carvedilol (COREG) 3.125 MG tablet Take 1 tablet (3.125 mg) by mouth 2 times daily (with meals)180 tablet 3 ??? clopidogrel (PLAVIX) 75 MG tablet Take 1 tablet (75 mg) by mouth daily 90 tablet 3 ??? fish oil-omega-3 fatty acids 1000 MG capsule Take 1 g by mouth daily ??? glipiZIDE (GLUCOTROL XL) 5 MG 24 hr tablet Take 5 mg by mouth daily Take 1 tablet with breakfast ??? Glucosamine HCl (GLUCOSAMINE PO) Take 1,500 mg by mouth 2 times daily ??? hydrALAZINE (APRESOLINE) 25 MG tablet Take 1 tablet (25 mg) by mouth 3 times daily 270 tablet 3 ??? isosorbide mononitrate (IMDUR) 30 MG 24 hr tablet Take 1 tablet (30 mg) by mouth daily At night90 tablet 3 ??? Multiple Vitamins-Minerals (PRESERVISION AREDS PO) Take 1 tablet by mouth 2 times daily ??? multivitamin w/minerals (THERA-VIT-M) tablet Take 1 tablet by mouth daily ??? nitroGLYcerin (NITROSTAT) 0.4 MG sublingual tablet For chest pain place 1 tablet under the tongue every 5 minutes for 3 doses. If symptoms persist 5 minutes after 1st dose call 911. 25 tablet 0 ??? psyllium (METAMUCIL/KONSYL) Packet Take 1 packet by mouth daily as needed for constipation 15 packet 0 ??? thin (NO BRAND SPECIFIED) lancets Use with lanceting device. 200 each 1 ??? torsemide (DEMADEX) 10 MG tablet Take 1 tablet (10 mg) by mouth daily 90 tablet 3 ??? Vitamin D3 (CHOLECALCIFEROL) 125 MCG (5000 UT) tablet Take 1 tablet by mouth daily Allergies: Allergies Allergen Reactions ??? Penicillins Hives Social History: History Drug Use Unknown History Smoking Status ??? Former ??? Types: Cigarettes ??? Quit date: 05/17/1981 Smokeless Tobacco ??? Never Social History Substance and Sexual Activity Alcohol use: Never Family History: History reviewed. No pertinent family history. Review of Systems: A complete review of systems was negative except as mentioned in the History of Present Illness. Objective & Physical Exam: BP (!) 144/80 Pulse 75 Ht 1.816 m (5' 11.5) Wt 90.7 kg (199 lb 14.4 oz) SpO2 96% BMI 27.49 kg/m?? Wt Readings from Last 2 Encounters: 07/29/22 90.7 kg (199 lb 14.4 oz) 05/19/22 85.5 kg (188 lb 9.6 oz) Body mass index is 27.49 kg/m??. Body surface area is 2.14 meters squared. Constitutional: appears stated age, dyspneic Head: normocephalic, atraumatic Neck: supple, trachea midline, no bruit bilaterally Pulmonary: diminished breath sounds on right side Cardiovascular: JVP normal, regular rate, regular rhythm, no murmurs Gastrointestinal: no guarding, non-rigid Neurologic: awake, alert, [...] 09/29/2019 Sodium Date Value Ref Range Status 07/29/2022 141 136 - 145 mmol/L Final 11/05/2020 139 133 - 144 mmol/L Final Potassium Date Value Ref Range Status 07/29/2022 5.3 3.4 - 5.3 mmol/L Final 09/16/2021 4.3 3.4 - 5.3 mmol/L Final 11/05/2020 4.3 3.4 - 5.3 mmol/L Final Chloride Date Value Ref Range Status 07/29/2022 110 (H) 98 - 107 mmol/L Final 09/16/2021 110 (H) 94 - 109 mmol/L Final 11/05/2020 108 94 - 109 mmol/L Final Carbon Dioxide Date Value Ref Range Status 11/05/2020 26 20 - 32 mmol/L Final Carbon Dioxide (CO2) Date Value Ref Range Status 07/29/2022 16 (L) 22 - 29 mmol/L Final 09/16/2021 23 20 - 32 mmol/L Final Anion Gap Date Value Ref Range Status 07/29/2022 15 7 - 15 mmol/L Final 09/16/2021 6 3 - 14 mmol/L Final 11/05/2020 5 3 - 14 mmol/L Final Glucose Date Value Ref Range Status 07/29/2022 118 (H) 70 - 99 mg/dL Final 09/16/2021 69 (L) 70 - 99 mg/dL Final 11/05/2020 95 70 - 99 mg/dL Final GLUCOSE BY METER POCT Date Value Ref Range Status 05/19/2022 190 (H) 70 - 99 mg/dL Final Urea Nitrogen Date Value Ref Range Status 07/29/2022 55.8 (H) 8.0 - 23.0 mg/dL Final 09/16/2021 48 (H) 7 - 30 mg/dL Final 11/05/2020 32 (H) 7 - 30 mg/dL Final Creatinine Date Value Ref Range Status 07/29/2022 2.45 (H) 0.67 - 1.17 mg/dL Final 11/05/2020 1.64 (H) 0.66 - 1.25 mg/dL Final GFR Estimate Date Value Ref Range Status 07/29/2022 26 (L) >60 mL/min/1.73m2 Final Comment: eGFR calculated using 2020 CKD-EPI equation. 11/05/2020 39 (L) >60 mL/min/[1.73_m2] Final Comment: Non GFR Calc Starting 05/03/2018, serum creatinine based estimated GFR (eGFR) will be calculated using the Chronic Kidney Disease Epidemiology Collaboration (CKD-EPI) equation. Calcium Date Value Ref Range Status 07/29/2022 9.6 8.8 - 10.2 mg/dL Final 11/05/2020 9.0 [...] Results Component Value Date A1C 8.6 08/20/2019 Recent Results (from the past 4320 hour(s)) Echocardiogram Complete Result Value LVEF 30-35% Narrative [id number]^RENETTA^TRISTAN [facility] Echocardiography Laboratory [address] [place] [id number] Name: KAVIN DELGADO : 1940 Study Date: 05/11/2022 09:11 AM Age: 81 yrs Gender: Male Patient Location: [facility] Reason For Study: CHF Ordering Physician: TRISTAN JACKSON Performed By: Thong Saab RDCS BSA: 2.2 m2 Height: 72 in Weight: 206 lb HR: 62 BP: 124/74 mmHg Procedure Complete Portable Echo Adult. Jasonson ([facility] #[id number]) given intravenously. Interpretation Summary Left ventricular systolic function is moderate to severely reduced. The visual ejection fraction is 30-35%. The left ventricle is moderately dilated. There is severe anterior, septal, and apical wall hypokinesis. There is apical dyskinesis. There is mild inferolateral wall hypokinesis. The left atrium is moderate to severely dilated. There is moderate (2+) mitral regurgitation.(ERO 0.22cm2/RV 36ml)( Right ventricular systolic pressure is elevated, consistent with moderate to severe pulmonary hypertension. There is mild (1+) aortic regurgitation. The ascending aorta is Mildly dilated.(42mm) The rhythm was sinus with wide QRS. Since the last stdy 08/28/2021 the patient is now NSR. Estimated globlal LV systolic performance may be slightly worse than the last study ( LVEF was estiamted 35 to 40%. now 30 to 35%) Left Ventricle The left ventricle is moderately dilated. There is normal left ventricular wall thickness. Left ventricular systolic function is moderate to severely reduced. The visual ejection fraction is 30-35%. There is severe anterior, septal, and apical wall hypokinesis. There is apical dyskinesis. There is mild inferolateral wall hypokinesis. There is no thrombus seen in the left ventricle. Right Ventricle The right ventricle is normal in structure, function and size. There is no mass or thrombus in the right ventricle. Atria The left atrium is moderate to severely dilated. Right atrial size is normal. There is no atrial shunt seen. The left atrial appendage is not well visualized. Mitral Valve The mitral valve leaflets appear normal. There is no evidence of stenosis, fluttering, or prolapse. There is moderate (2+) mitral regurgitation. Tricuspid Valve Normal tricuspid valve. The right ventricular systolic pressure is elevated at 62.7 mmHg. Right ventricular systolic pressure is elevated, consistent with moderate to severe pulmonary hypertension. There is no tricuspid stenosis. Aortic Valve There is moderate trileaflet aortic sclerosis. There is mild (1+) aortic regurgitation. No aortic stenosis is present. Pulmonic Valve Normal pulmonic valve. There is trace to mild pulmonic valvular regurgitation. There is no pulmonic valvular stenosis. Vessels The aortic root is normal size. The ascending aorta is Mildly dilated. The inferior vena cava is normal. The pulmonary artery is normal size. Pericardium The pericardium appears normal. There is no pleural effusion. Rhythm The rhythm was sinus with wide QRS. MMode/2D Measurements & Calculations IVSd: 0.95 cm LVIDd: 6.4 cm LVIDs: 4.9 cm LVPWd: 1.2 cm FS: 22.8 % LV mass(C)d: 291.5 grams LV mass(C)dI: 135.1 grams/m2 Ao root diam: 3.6 cm LA dimension: 5.4 cm LA/Ao: 1.5 LVOT diam: 2.5 cm LVOT area: 4.9 cm2 LA Volume (BP): 119.0 ml LA Volume Index (BP): 55.1 ml/m2 RWT: 0.37 Doppler Measurements & Calculations MV E max jovani: 106.0 cm/sec MV A max jovani: 24.6 cm/sec MV E/A: 4.3 MV dec time: 0.13 sec Ao V2 max: 166.0 cm/sec Ao max P.0 mmHg Ao V2 mean: 118.0 cm/sec Ao mean P.0 mmHg Ao V2 VTI: 34.5 cm ELISE(I,D): 3.1 cm2 ELISE(V,D): 2.9 cm2 AI P1/2t: 404.4 msec LV V1 max P.9 mmHg LV V1 max: 98.3 cm/sec LV V1 VTI: 21.5 cm SV(LVOT): 105.5 ml SI(LVOT): 48.9 ml/m2 PI end-d jovani: 185.0 cm/sec TR max jovani: 396.0 cm/sec TR max P.7 mmHg AV Jovani Ratio (DI): 0.59 ELISE Index (cm2/m2): 1.4 E/E' av.6 Lateral E/e': 16.2 Medial E/e': 29.0 Report approved by: Dr. Benjy Amaya 05/11/2022 09:52 AM documented in this encounter Plan of Treatment Scheduled Referrals Name Type Priority Associated Diagnoses Orde r Schedule Follow-Up with Cardiology DIRK Referral Routine: Next available opening Ischemic cardiomyopathy Expected: 10/29/2022 (Approximate), Expires: 07/30/2023 Follow-Up with Cardiology Referral Routine: Next available opening Ischemic cardiomyopathy Expected: 01/29/2023 (Approximate), Expires: 07/30/2023 documented as of this encounter Visit Diagnoses Diagnosis Ischemic cardiomyopathy- Primary Other specified forms of chronic ischemic heart disease Chronic systolic congestive heart failure (H) Chronic systolic heart failure Mitral valve insufficiency, unspecified etiology Restrictive lung disease Other diseases of lung, not elsewhere classified ACS (acute coronary syndrome) (H) Intermediate coronary syndrome documented in this encounter Care Teams Curtain Hemmer Automatic Relationship Specialty Start Date End Date [facility], [facility] [address] [place] [address] PCP - General 08/19/19 Adal Turner MD [address] [place] [id number] Assigned Heart and Vascular Provider 11/01/21 02/05/23 documented as of this encounter
--- OUTSIDE RECORDS SUMMARY | 2023-06-23 11:33 | XMS_ITS | Encounter Summary ---
Author Name Unknown Organization [place] Address [facility] [place] [address] Care Team Providers Care Boiling Off Winder Name Role Phone [facility], [facility] Primary Care Provide r Adal Turner MD Unavailable Britta Raya RN Unavailable Unavaila ble Reason for Referral * Diagnostic Imaging XR (Routine) - Pending Review Specialty Diagnoses / Procedures Referred By Contac t Referred To Contact Radiology. Diagnoses Ischemic cardiomyopathy Shortness of breath Procedures X-ray Chest 2 vws* Tristan Valdez NP [address] [place] [address] Referral ID Status Reason Start Date Expiration Date V isits Requested Visits Authorized Pending Review 11/06/2022 11/06/2023 1 1 Reason for Visit * Diagnostic Imaging XR (Routine) - Pending Review Specialty Diagnoses / Procedures Referred By Contac t Referred To Contact Radiology. Diagnoses Ischemic cardiomyopathy Shortness of breath Procedures X-ray Chest 2 vws* Tristan Valdez NP [address] [place] [address] Referral ID Status Reason Start Date Expiration Date V isits Requested Visits Authorized Pending Review 11/06/2022 11/06/2023 1 1 Encounter Details Date Type Department Care Team (Latest Contact Info) Description 11/06/2022 1:58 PM CDT - 11/06/2022 11:59 PM CDT Hospital Encounter [facility] [address] [facility] [address] [place] [address] Tristan Valdez, KIERAN [address] [place] [address] Ischemic cardiomyopathy; Shortness of breath Discharge Disposition: Home or Self Care Social History Tobacco Use Types Packs/Day Years [...] PM CDT documented as of this encounter Medications at Time of Discharge Medication Sig Dispensed Refills Start Date End Date albuterol (PROVENTIL) (2.5 MG/3ML) 0.083% neb solution Inhale 3 mL (2.5 mg) via a nebulizer every 4 hours if needed for Shortness Of Breath or Cough.* 0 09/17/2022 alcohol swab prep padsIndications:Type 2 diabetes mellitus without complication, without long-term current use of insulin (H) Use to swab area of injection/trish as directed. 100 each 3 09/05/2019 atorvastatin (LIPITOR) 40 MG tabletIndications:Isc hemic cardiomyopathy,ACS (acute coronary syndrome) (H) Take 1 tablet (40 mg) by mouth every evening 90 tablet 3 07/29/2022 blood glucose (NO BRAND SPECIFIED) test stripIndications:Type 2 diabetes mellitus without complication, without long-term current use of insulin (H) Use to test blood sugar 4 times daily or as directed. 100 strip 1 09/05/2019 blood glucose calibration (NO BRAND SPECIFIED) solutionIndications:T ype 2 diabetes mellitus without complication, without long-term current use of insulin (H) Use to calibrate blood glucose monitor as needed as directed. 1 Bottle 3 09/05/2019 blood glucose monitoring (NO BRAND SPECIFIED) meter device kitIndications:Type 2 diabetes mellitus without complication, without long-term current use of insulin (H) Use to test blood sugar 4 times daily or as directed. 1 kit 0 09/05/2019 carvedilol (COREG) 3.125 MG tabletIndications:Isc hemic cardiomyopathy,Chroni c systolic congestive heart failure (H),ACS (acute coronary syndrome) (H) Take 1 tablet (3.125 mg) by mouth 2 times daily (with meals) 180 tablet 3 07/29/2022 clopidogrel (PLAVIX) 75 MG tabletIndications:Isc hemic cardiomyopathy,ACS (acute coronary syndrome) (H) Take 1 tablet (75 mg) by mouth daily 90 tablet 3 07/29/2022 fish oil-omega-3 fatty acids 1000 MG capsuleIndications:90 0 mg daily Take 1 g by mouth daily 0 glipiZIDE (GLUCOTROL XL) 5 MG 24 hr tablet Take 5 mg by mouth daily Take 1 tablet with breakfast 0 Glucosamine HCl (GLUCOSAMINE PO) Take 1,500 mg by mouth 2 times daily 0 hydrALAZINE (APRESOLINE) 25 MG tabletIndications:Isc hemic cardiomyopathy,Chroni c systolic congestive heart failure (H),Mitral valve insufficiency, unspecified etiology Take 1 tablet (25 mg) by mouth 3 times daily 270 tablet 3 07/29/2022 isosorbide mononitrate (IMDUR) 30 MG 24 hr tabletIndications:Isc hemic cardiomyopathy,Chroni c systolic congestive heart failure (H),Mitral valve insufficiency, unspecified etiology Take 1 tablet (30 mg) by mouth daily At night 90 tablet 3 07/29/2022 Multiple Vitamins-Minerals (PRESERVISION AREDS PO) Take 1 tablet by mouth 2 times daily 0 multivitamin w/minerals (THERA-VIT-M) tablet Take 1 tablet by mouth daily 0 nitroGLYcerin (NITROSTAT) 0.4 MG sublingual tabletIndications:ACS (acute coronary syndrome) (H) For chest pain place 1 tablet under the tongue every 5 minutes for 3 doses. If symptoms persist 5 minutes after 1st dose call 911. 25 tablet 0 09/05/2019 psyllium (METAMUCIL/KONSYL) PacketIndications:Con stipation, unspecified constipation type Take 1 packet by mouth daily as needed for constipation 15 packet 0 05/18/2022 thin (NO BRAND SPECIFIED) lancetsIndications:Ty pe 2 diabetes mellitus without complication, without long-term current use of insulin (H) Use with lanceting device. 200 each 1 09/05/2019 Vitamin D3 (CHOLECALCIFEROL) 125 MCG (5000 UT) tablet Take 1 tablet by mouth daily 0 torsemide (DEMADEX) 10 MG tabletIndications:Chr onic systolic congestive heart failure (H) Take 2 tablets (20 mg) by mouth daily 0 11/10/2022 05/28/2023 torsemide (DEMADEX) 10 MG tabletIndications:Chr onic systolic congestive heart failure (H) Take 1 tablet (10 mg) by mouth daily 90 tablet 3 07/29/2022 11/10/2022 documented as of this encounter Plan of Treatment Not on file documented as of this encounter Procedures Procedure Name Priority Date/Time Associated Diagnosis Comments XR CHEST 2 VIEWS Routine 11/06/2022 2:15 PM CDT Ischemic cardiomyopathy Shortness of breath documented in this encounter Results * X-ray Chest 2 vws* (11/06/2022 2:15 PM CDT) Anatomical Region Laterality Modality Chest Radio Fluoroscop y Impressions 11/06/2022 4:25 PM CDT IMPRESSION: Stable small right pleural effusion. Bilateral vascular congestion and hazy opacities could represent pulmonary edema though this appears improved since 05/10/2022. Mild cardiomegaly again noted, but also slightly less prominent. Patchy opacity at the right lung base represents atelectasis or airspace disease. EDWARD BLANCHARD MD Narrative 11/06/2022 4:25 PM CDT CHEST TWO VIEWS ?11/06/2022 2:15 PM HISTORY: Worsening shortness of breath - Rule out pleural effusions. Ischemic cardiomyopathy. Shortness of breath. COMPARISON: 05/10/2022. Procedure Note Edward Blanchard MD - 06/23/2023 CHEST TWO VIEWS 11/06/2022 2:15 PM HISTORY: Worsening shortness of breath - Rule out pleural effusions. Ischemic cardiomyopathy. Shortness of breath. COMPARISON: 05/10/2022. IMPRESSION: Stable small right pleural effusion. Bilateral vascular congestion and hazy opacities could represent pulmonary edema though this appears improved since 05/10/2022. Mild cardiomegaly again noted, but also slightly less prominent. Patchy opacity at the right lung base represents atelectasis or airspace disease. EDWARD BLANCHARD MD Tristan Valdez NP IMG DIAGNOSTIC IMAGI NG ORDERABLES documented in this encounter Visit Diagnoses Diagnosis Ischemic cardiomyopathy Other specified forms of chronic ischemic heart disease Shortness of breath documented in this encounter Care Teams Boiling Off Winder Relationship Specialty Start Date End Date [facility] [address] [place], [place] [id number] PCP - General 08/19/19 Adal Turner MD [address] [facility] [address] [place] [address] Assigned Heart and Vascular Provider 11/01/21 02/05/23 Britta Raya, RN Registered Nurse Cardiology 10/27/22 documented as of this encounter
--- OUTSIDE RECORDS SUMMARY | 2023-06-23 11:33 | XMS_ITS | Encounter Summary ---
Author Name Unknown Organization [place] Address [address] [place] [address]. [place] [address] Care Team Providers Care Compliance Quality Performance Analyst Name Role Phone [facility], [facility] Primary Care Provide r Adal Turner MD Unavailable Encounter Details Date Type Department Care Team (Latest Contact Info) Description 07/29/2022 Travel Social History Tobacco Use Types Packs/Day [...] on filedocumented in this encounter Care Teams Compliance Quality Performance Analyst Relationship Specialty Start Date End Date [facility], [facility] [address] [place], [place] [id number] PCP - General 08/19/19 Adal Turner MD [address] [place] [address] Assigned Heart and Vascular Provider 11/01/21 02/05/23 documented as of this encounter
--- OUTSIDE RECORDS SUMMARY | 2023-06-23 11:33 | XMS_ITS | Encounter Summary ---
Author Name Unknown Organization [place] Address [address] [place] [address] Care Team Providers Care Packing Line Worker Name Role Phone [facility], [facility] Primary Care Provide r Adal Turner MD Unavailable Britta Raya RN Unavailable Unavaila ble Reason for Visit * Reason Comments CORE Torsemide clarificat ion Encounter Details Date Type Department Care Team (Latest Contact Info) Description 11/23/2022 Care Coordination [facility] Heart [facility] [id number] [place] [address] [address] [place] [address] Britta Raya, CHASE CORE (Torsemide clarification) Social History Tobacco Use Types Packs/Day Years [...] AM CDT documented as of this encounter Progress Notes * Britta Raya RN - 11/23/2022 2:13 PM CDT 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 General nursing received call from pt's caregiver (CTC on file) who wanted clarification regarding pt's torsemide. Wasn't sure if he should continue on increased dose of torsemide or reduce it back to 10 mg as pt had a nose bleed. RN directed caregiver to call CORE RN line to discuss further. No call received yet, so called Danelle caregiver, savannah left requesting call back to discuss further. Received call back who reports Ulises did the extra torsemide on 11/07-11/09/22 and then again from 11/14-11/20/22, but on 11/20 he developed a nose bleed that lasted total of 5 hrs where it was chronically just seeping and seeping. No further nose bleeds since 11/20/22. Confirms pt just taking plavix. Not on ASA. Recommended pt continue on 20 mg of torsemide, but will call back with recommendations regarding plavix and nose bleeds. Chart Reviewed: -- 10/15/20: Stop ASA, continue Plavix. - per Dr. Johnny chase OV. -- 11/06/22: CXR, BMP completed. Increase torsemide dose to 20 mg daily x 3 days (from 10 mg daily) d/t sx and rise in NT pro BNP levels. Palliative referral placed (not scheduled). -- per Tono Valdez, STAFFING RECRUITER. -- 11/09/22: Sx unchanged after 3 days of extra torsemide. Wt 188 lbs. Continue torsemide 20 mg daily and repeat BMP in 1 week (scheduled 11/27/22). Future Appointments Date Time Provider Department Center 11/27/2022 11:00 AM RU LAB [facility] 02/19/2023 3:45 PM Adal Turner MD [facility] Britta Raya, CHASE ROMERO [place] Research Geologist 11/23/22, 2:16 PM * Britta Raya RN - 11/23/2022 2:13 PM CDT Images from the original note were not included. Called Danelle back and instructed her to hold clopidogrel x 1 week and call CORE RN back after 1 week to give update on nosebleeds. She voices understanding and denies further questions or concerns at this time. CHASE Zarate [place] Clinic Research Geologist 11/23/22, 3:55 PM * Maria Esther Randle RN - 11/23/2022 2:13 PM CDT [facility] Called and spoke to Danelle on CTC. She states she received VM yesterday from CHASE Peraza (see 11/27/22 encounter). Recommendations per Tono Valdez CNP were reviewed with pt's caregiver via [...] other possible potential options for symptom management. Danelle reports they are continuing the torsemide at 20mg/ daily. She also confirms they resumed the plavix 75mg/ daily yesterday. She states that Ulises had not had any nose bleeds during the hold and remains without them currently, she will call if changes occur. Maria Esther Randle RN, BSN [place], [place] [facility] Research Geologist December 01, 2022 12:38 PM Future Appointments Date Time Provider Department Center 02/19/2023 3:45 PM Adal Turnre MD [facility] documented in this encounter Plan of Treatment Not on file documented as of this encounter Visit Diagnoses Not on filedocumented in this encounter Care Teams Packing Line Worker Relationship Specialty Start Date End Date [facility], [facility] [address] [place], [place] [phone] PCP - General 08/19/19 Adal Turner MD [address] [facility] [address] [place] [address] Assigned Heart and Vascular Provider 11/01/21 02/05/23 Britta Raya, RN Registered Nurse Cardiology 10/27/22 documented as of this encounter
--- OUTSIDE RECORDS SUMMARY | 2023-06-23 11:33 | XMS_ITS | Encounter Summary ---
Author Name Unknown Organization [place] Address [facility] [place] [address] Care Team Providers Care Operations Specialists Name Role Phone Clinic, [facility] Primary Care Provide r Adal Turner MD Unavailable Reason for Visit * Reason Onset Date Comments Medication Question 08/03/2022 albuterol (P ROVENTIL) (2.5 MG/3ML) 0.083% neb solution Encounter Details Date Type Department Care Team (Late st Contact Info) Description 08/03/2022 Telephone [facility] [address] [facility] [address] [place] [address] Adal Turner MD [address] [facility] [address] [place], [place] [address] Medication Question (albuterol (PROVENTIL) (2.5 MG/3ML) 0.083% neb solution) Social History Tobacco Use Types Packs/Day Years [...] PM CDT documented as of this encounter Miscellaneous Notes * Telephone Encounter - Carina Aguilar RN - 08/24/2022 12:02 PM CDT Call received from pt's manager urgent care Danelle. Pt is [facility] and does not speak on phone. Pt has been using nebulizer solution PRN for SOB with a lended machine. Would like to continue with solution vs inhaler. Pt's manager urgent care advised to call if refill requested as pt should follow up with primarty care regarding continued SOB. Darren Aguilar RN, BSN. * Telephone Encounter - Carina Aguilar RN - 08/04/2022 9:13 AM CDT Images from the original note were not included. Adal Turner MD You 22 hours ago (10:23 AM) AH Let's just change him to an inhaler thanks! Call placed to pt to review. No answer - unable to leave VM - will trial call back. Orders placed per MD. Darren Aguilar RN, BSN. Second call attempt - no answer - unable to leave VM - orders placed per provider. Will trial recall. Darren Aguilar RN, BSN. 08/10/22 1:28 PM * Telephone Encounter - Carina Aguilar RN - 08/03/2022 9:17 AM CDT KIA 07/29/[address] Turner: #??Dyspnea on exertion. Clinical presentation does not seem characteristic of decompensated heart failure, suspect this is related to his recent pneumonia, as well as restrictive lung disease. # HFrEF 2/2 ICM. Stable, euvolemic. # ??Mod MR #?Coronary artery disease, recent NSTEMI status post PCI to proximal LAD and proximal OM1 08/29/2019.?Denies symptoms concerning for angina. #?CHAD on??CKD,??Followed by Nephrology #?Diabetes.? -Given persistent dyspnea and significant weakness, recommended [...] hydralazine - Follow-up with my colleague Tono Valdez SENIOR GRANT WRITER in 3 months and with me in 6 months, or sooner as needed * Telephone Encounter - Kristina Mclain - 08/03/2022 7:[address] [facility] Phone Message May a detailed message be left on voicemail: yes Reason for Call: Medication Question or concern regarding medication Prescription Clarification Name of Medication: albuterol (PROVENTIL) (2.5 MG/3ML) 0.083% neb solution Prescribing Provider: Pharmacy: [id number] - [place], [place] - [address] What on the order needs clarification? Danelle called on behalf of the patient requesting to speak with a member of his care team. States he does not have a nebulizer. Please call back to further discuss, thank you. Action Taken: Message routed to: Other: Cardiology Travel Screening: Not Applicable Thank you! [facility] documented in this encounter Plan of Treatment Not on file documented as of this encounter Visit Diagnoses Diagnosis Shortness of breath- Primary documented in this encounter Care Teams Operations Specialists Relationship Specialty Start Date End Date Clinic, [facility] [address] [place], [place] [phone] PCP - General 08/19/19 Adal Turner MD [address] [place] [id number] Assigned Heart and Vascular Provider 11/01/21 02/05/23 documented as of this encounter
--- OUTSIDE RECORDS SUMMARY | 2023-06-23 11:33 | XMS_ITS | Encounter Summary ---
Author Name Unknown Organization [place] Address [address] [place] [address] Care Team Providers Care Vinyl Installer Name Role Phone Clinic, [facility] Primary Care Provide r Adal Turner MD Unavailable Britta Raya RN Unavailable Unavaila ble Encounter Details Date Type Department Care Team (Late st Contact Info) Description 11/27/2022 11:00 AM CDT [facility] Heart [address] [place] [address] Chronic systolic congestive heart failure (H) Social History Tobacco Use Types Packs/Day [...] Procedure Name Priority Date/Time Associated Diagnosis Comments BASIC METABOLIC PANEL Routine 11/27/2022 10:49 AM CDT Chronic systolic congestive heart failure (H) documented in this encounter Results * (ABNORMAL) Basic metabolic panel (11/27/2022 10:49 AM CDT) Sodium 141 136 - 145 mmol/L 11/27/2022 11:25 AM CDT LABORATORY Potassium 5.0 3.4 - 5.3 mmol/L 11/27/2022 11:25 AM CDT LABORATORY Chloride 110(H) 98 - 107 mmol/L 11/27/2022 11:25 AM CDT LABORATORY Carbon Dioxide (CO2) 20(L) 22 - 29 mmol/L 11/27/2022 11:25 AM CDT LABORATORY Anion Gap 11 7 - 15 mmol/L 11/27/2022 11:25 AM CDT LABORATORY Urea Nitrogen 60.4(H) 8.0 - 23.0 mg/dL 11/27/2022 11:25 AM CDT LABORATORY Creatinine 2.51(H) 0.67 - 1.17 mg/dL 11/27/2022 11:25 AM CDT LABORATORY Calcium 9.1 8.8 - 10.2 mg/dL 11/27/2022 11:25 AM CDT LABORATORY Glucose 104(H) 70 - 99 mg/dL 11/27/2022 11:25 AM CDT LABORATORY GFR Estimate 25(L) >60 mL/min/1.7 3m2 11/27/2022 11:25 AM CDT LABORATORY Blood STRUCTURE OF LEFT UPPER LIMB / Unknown Venipuncture / Unknown 11/27/2022 10:49 AM CDT 11/27/2022 10:53 AM CDT Tristan Valdez NP LAB - BLOOD ORDERABL ES LABORATORY [facility] Acute [facility] Lab [address] Lab (1st floor, no room number) [place] [address], [facility] [phone] documented in this encounter Visit Diagnoses Diagnosis Chronic systolic congestive heart failure (H) Chronic systolic heart failure documented in this encounter Care Teams Vinyl Installer Relationship Specialty Start Date End Date [facility], [facility] [address] [place] [address] PCP - General 08/19/19 Adal Turner MD [address] [facility] [address] [place] [address] Assigned Heart and Vascular Provider 11/01/21 02/05/23 Britta Raya, RN Registered Nurse Cardiology 10/27/22 documented as of this encounter
--- OUTSIDE RECORDS SUMMARY | 2023-06-23 11:33 | XMS_ITS | Encounter Summary ---
Author Name Unknown Organization [place] Address [facility] [place] [address] Care Team Providers Care Registered Nurse Obstetrics Name Role Phone [facility] Primary Care Provide r Adal Turner MD Unavailable Britta Raya RN Unavailable Unavaila ble Reason for Visit * Reason Onset Date Comments CORE 11/06/2022 Update on CXR an d plan for weekend Encounter Details Date Type Department Care Team (Late st Contact Info) Description 11/06/2022 Telephone [facility] Heart [facility] [id number] [place] [address] [address] [place] [address] Karmen Hayes, CH[facility] CORE (Update on CXR and plan for weekend ) Social History Tobacco Use Types Packs/Day [...] encounter Miscellaneous Notes * Telephone Encounter - Britta Raya RN - 11/16/2022 8:50 AM CDT [facility] 3rd attempt: Called [place] (home), unable to leave . Orders placed for BMP now and again 02/19/23 prior to him seeing Dr. Turner for OV. Message sent to scheduling requesting they mail letter requesting he arrange lab appts as unable toreach pt. Future Appointments Date Time Provider Department Center 02/19/2023 3:45 PM Adal Turner MD [facility] Britta Raya RN BSN [place], [place] [facility] Rn Eligibility 11/16/22, 8:54 AM * Telephone Encounter - Karmen Hayes RN - 11/12/2022 1:44 PM CDT Second voice mail for Danelle to see if she received first voice mail, if Ulises is continue on 20 mg once daily and to schedule BMP in 1 week. Left CORE number for a call back Future Appointments Date Time Provider Department Center 02/19/2023 3:45 PM Adal Turner MD [facility] NICK Hutchison, RN 1:45 PM 11/12/22 * Telephone Encounter - Karmen Hayes RN - 11/10/2022 10:58 AM CDT Call placed to Danelle with recommendations per Tono: Continue torsemide 20 mg once daily and repeat BMP in 1 week. No answer, left detailed message with request to call CORE back with confirmation of instructions and set up lab for next week. Updated medication list to reflect change on torsemid 20 mg once daily. Future Appointments Date Time Provider Department Center 02/19/2023 3:45 PM Adal Turner MD [facility] NICK Hutchison, RN 11:02 AM 11/10/22 * Telephone Encounter - Tristan Valdez NP - 11/09/2022 4:55 PM CDT Let's try having him continue on the torsemide 20 mg once daily for now and repeat a BMP in about 1week to recheck kidney function and electrolytes. Would continue to monitor weights and symptoms. Thank you! * Telephone Encounter - Karmen Hayes RN - 11/09/2022 10:54 AM CDT Call to Danelle for an update after torsemide was increased over the weekend. Today is the last dayof 20 mg torsemide once daily. She reports everything is about the same. The only thing different is he is going to the bathroom more. She reports weight is 188 lbs today. Shortness of breath and orthopnea unchanged. He also continuesto wake with PND. Update to Tono. Future Appointments Date Time Provider Department Center 02/19/2023 3:45 PM Adal Turner MD [facility] NICK Hutchison, RN 11:14 AM 11/09/22 * Telephone Encounter - Karmen Hayes RN - 11/06/2022 5:00 PM CDT Called [facility] and his friend Danelle answered. Discussed CXR results and recommendations per Tono: increasing the dose of torsemide from 10 mg to 20 mg once daily x3 days to see if this might help with his symptoms given the rise in his NT pro BNP level. She expressed understanding and let Ulises know. Tono also placed a referral for Palliative to discuss goals of care. Danelle aware. Future Appointments Date Time Provider Department Center 02/19/2023 3:45 PM [facility] NICK Hutchison, RN 5:26 PM 11/06/22 * Telephone Encounter - Karmen Hayes RN - 11/06/2022 4:59 PM CDT ----- Message from Tristan Valdze NP sent at 11/06/2022 4:53 PM CDT ----- Results noted and overall appears stable in comparison to a previous check from April 2022. Please update the patient on the chest x-ray findings and his lab results. Recommend he try increasing the dose of torsemide from 10 mg to 20 mg once daily x3 days to see if this might help with his symptoms given the rise in his NT pro BNP level. Thank you! documented in this encounter Plan of Treatment Not on file documented as of this encounter Results * (ABNORMAL) Basic metabolic [...] >60 mL/min/1.7 3m2 11/27/2022 11:25 AM CDT [facility] Blood STRUCTURE OF LEFT UPPER LIMB / Unknown Venipuncture / Unknown 11/27/2022 10:49 AM CDT 11/27/2022 10:53 AM CDT Tristan Valdez NP LAB - BLOOD ORDERABL ES [facility] Acute [facility] Lab [address] Lab (1st floor, no room number) [place] [address], [facility] [phone] documented in this encounter Visit Diagnoses Diagnosis Chronic systolic congestive heart failure (H) Chronic systolic heart failure documented in this encounter Care Teams Registered Nurse Obstetrics Relationship Specialty Start Date End Date [facility] [address] [address] [place], [place] [id number] PCP - General 08/19/19 Adal Turner MD [address] [facility] [address] [place] [address] Assigned Heart and Vascular Provider 11/01/21 02/05/23 Britta Raya, RN Registered Nurse Cardiology 10/27/22 documented as of this encounter
--- OUTSIDE RECORDS SUMMARY | 2023-06-23 11:33 | XMS_ITS | Encounter Summary ---
Author Name Unknown Organization [place] Address [address] [facility] [place] [address] Care Team Providers Care Job Setter Honing Name Role Phone [facility] Primary Care Provide r Clementine Gomez APRN FORMING ACID DUMPER Unavailable [phone] Adal Turner MD Unavailable Britta Raya RN Unavailable Unavaila Tristan Burnett NP Unavailable [phone] Adal Turner MD Unavailable Edmar Brunner MD Unavailable Reason for Visit * Reason Onset Date Comments Appointment 10/15/2021 Reschedule. Encounter Details Date Type Department Care Team (Late st Contact Info) Description 10/15/2021 Telephone [facility] Heart [facility] [address] [facility] [address] [place] [address] Adal Turner MD [address] [facility] [address] [place], [place] [address] Appointment (Reschedule.) Social History Tobacco Use Types Packs/Day Years [...] suspected to have Coronavirus/COVID-19? No / Unsure 09/16/2021 9:10 AM CDT documented as of this encounter Miscellaneous Notes * Telephone Encounter - Kristina Mclain - 10/15/2021 9:45 AM CDT [facility] Phone Message May a detailed message be left on voicemail: yes Reason for Call: Other: Patient needs to reschedule their appointment for November 06 to a different date. Soonest appointment would be January 27, but that is not soon enough for the patient. Please call patient back to discuss further, thank you. Action Taken: Message routed to: Other: Cardiology Travel Screening: Not Applicable documented in this encounter Plan of Treatment Not on file documented as of this encounter Visit Diagnoses Not on filedocumented in this encounter Additional Health Concerns Infection Onset Date Last Indicated Resolved Time Rule Out COVID-19 05/10/2022 05/10/2022 05/10/2022 2:15 PM [employer] documented as of this encounter Care Teams Job Setter Honing Relationship Specialty Start Date End Date [facility] [address] [place] [address] PCP - General 08/19/19 Clementine Gomez APRN [employer]MPER [address] [place] [address] Assigned Heart and Vascular Provider 09/07/21 10/31/21 Adal Turner MD [address] [place] [address] Assigned Heart and Vascular Provider 11/01/21 02/05/23 Britta Raya, RN Registered Nurse Cardiology 10/27/22 Tristan Valdez NP [address] [address] Assigned Heart and Vascular Provider 02/06/23 02/19/23 Adal Turner MD [address], [address] [place] [id number] Assigned Heart and Vascular Provider 02/20/23 Edmar Brunner MD [address] [place], [place] [address] Assigned Surgical Provider 04/10/23 documented as of this encounter
--- OUTSIDE RECORDS SUMMARY | 2023-06-23 11:33 | XMS_ITS | Encounter Summary ---
Author Name Unknown Organization [place] Address [facility] [place] [address] Care Team Providers Care Fish Drier Name Role Phone [facility] Primary Care Provide r Adal Turner MD Unavailable Reason for Visit * Reason Onset Date Comments Call Back 08/10/2022 Nebulizer Encounter Details Date Type Department Care Team (Late st Contact Info) Description 08/10/2022 Telephone [facility] Heart [address] [place] [address] Adal Turner MD [address] [facility] [address] [place] [address] Call Back (Nebulizer) Social History Tobacco Use Types Packs/Day Years [...] Telephone Encounter - Carina Aguilar RN - 08/10/2022 1:39 PM CDT See alternate tele encounter 07/20/2022 - unable to reach pt regarding new script for inhaler - call placed to yolanda who is his customer acquisition specialist to review script sent to [facility] which is pt's preferred pharmacy. Unable to reach Danelle - left detailed VM including location of pharmacy script was sent to on file. Left call back number for questions / concerns. Darren Aguilar RN, BSN. 08/10/22 1:42 PM * Telephone Encounter - Shelbi James MA - 08/10/2022 12:39 PM CDT [facility] Phone Message May a detailed message be left on voicemail: yes Reason for Call: Other: Pt had an order for a nebulizer placed and they don't know where to pick itup from. Please call pt contact Tiffanie parmar per pt is hard of hearing. Thank you Action Taken: Message routed to: Other: Cardiology Travel Screening: Not Applicable Thank you! [facility] documented in this encounter Plan of Treatment Not on file documented as of this encounter Visit Diagnoses Not on filedocumented in this encounter Care Teams Fish Drier Relationship Specialty Start Date End Date [facility] [address] [place] [address] PCP - General 08/19/19 Adal Turner MD [address] [place] [address] Assigned Heart and Vascular Provider 11/01/21 02/05/23 documented as of this encounter
--- OUTSIDE RECORDS SUMMARY | 2023-06-23 11:33 | XMS_ITS | Encounter Summary ---
Author Name Unknown Organization [facility] Address [address] [place] [address] Care Team Providers Care Sports Medicine Physician Name Role Phone [facility], [facility] Primary Care Provide r Adal Turner MD Unavailable Britta Raya RN Unavailable Unavaila ble Reason for Referral * Diagnostic Imaging XR (Routine) - Pending Review Specialty Diagnoses / Procedures Referred By Julio t Referred To Contact Radiology. Diagnoses Ischemic cardiomyopathy Shortness of breath Procedures X-ray Chest 2 vws* Tristan Valdez NP [address] [address] Referral ID Status Reason Start Date Expiration Date V isits Requested Visits Authorized [id number] Pending Review 11/06/2022 11/06/2023 1 1 Reason for Visit * Reason Comments CORE 3 month follow up * Consultation (Routine: Next available opening) - Pending Review Specialty Diagnoses / Procedures Referred By Julio burk Referred To Contact Cardiovascular Disease Diagnoses Ischemic cardiomyopathy Adal Turner MD [address] [place] [address] Referral ID Status Reason Start Date Expiration Date V isits Requested Visits Authorized [id number] Pending Review 07/29/2022 07/29/2023 1 1 Encounter Details Date Type Department Care Team ([facility] st Contact Info) Description 11/06/2022 1:10 PM CDT Office Visit [facility] [address] [place] [id number] Adal Turner MD [address] [place] [id number] Tristan Valdez NP [address] [id number] Shortness of breath (Primary Dx); Ischemic cardiomyopathy; Chronic systolic congestive heart failure (H); Restrictive lung disease; CKD (chronic kidney disease) stage 4, GFR 15-29 ml/min (H) Social History Tobacco Use Types Packs/Day [...] Sign Reading Time Taken Comments Blood Pressure 124/62 11/06/2022 1:03 PM CDT Pulse 68 11/06/2022 1:03 PM CDT Temperature - - Respiratory Rate - - Oxygen Saturation 95% 11/06/2022 1:0 3 PM CDT on room air Inhaled Oxygen Concentration - - Weight 85.1 kg (187 lb 11.2 oz) 11/06/2022 1:03 PM CDT Height 180.3 cm (5' 11) 11/06/2022 1:0 3 PM CDT Body Mass Index 26.18 11/06/2022 1:03 PM CDT documented in this encounter Patient Instructions * Patient Instructions* Tristan Valdez NP - 11/06/2022 1:10 PM CDT Images from the original note were not included. Thank you for your visit with the [facility] today. [facility] stands for Cardiomyopathy Optimization Rehabilitation and Education. The [facility] clinic will teach and help you to manage your heart failure and keep you out of the hospital. Today's plan: Check labs following the visit today. Check a chest x-ray today or early next week to assess for possible pleural effusions. Consider meeting with the palliative care team to help with symptom management and goals of care discussions. Continue your current medications. Follow up with Dr. Turner in about 3 months. Continue to check your weights daily and try to stick to a low sodium diet (under 2,000 mg/day). Call the [facility] nurse team at the number listed below if you develop signs concerning for fluid retention, including weight gain of over 3 pounds in 1 night or over 5 pounds in 1 week, increasing shortness of breath, or increasing swelling in the legs or abdomen. If you have questions or concerns please call the [facility] nurse team at [phone] or send a KVK TEAM message. Scheduling phone number: [phone] It was a pleasure seeing you today! Tono Valdez APRN, CAREER TECHNOLOGY TEACHER Nurse Practitioner [facility] documented in this encounter Progress Notes * Tristan Valdez NP - 11/06/2022 1:10 PM CDT Images from the original note were not included. Cardiology Clinic Progress Note [facility] Visit (Heart Failure Specialty Clinic) Service Date: November 06, 2022 Primary Quill Skinner: Dr. Turner Reason for Visit: Follow up for chronic HFrEF HPI: I had the pleasure of seeing Mr. Ulises Delgado in the clinic today. He is a very pleasant 82 year old gentleman with a past medical history notable for coronary artery disease status post SANTOSH to theproximal LAD and proximal OM1 (08/29/2019), heart failure with reduced ejection fraction secondary to ischemic cardiomyopathy (LVEF??35-40% TTE 10/2020), qyveggni-ze-vzcixbeb-severe mitral regurgitation and egkt-mq-rtjsqygc tricuspid regurgitation (TTE 09/29/2019), CKD, and type 2 diabetes. The patient has followed with Dr. Adal Turner for his cardiology care. Dr. Turner has previously discussedoptions for further evaluation/management of his mitral valve disease, including TATIANA for reassessment. At that time he stated I am close to 81 years old, if it is my time to go, it is my time to go. ??They discussed goals of care at length at that time, and offered referral to Palliative Care. However, patient declined this. Pulmonary function testing was completed on 03/30/2022 demonstrated moderate restrictive lung disease. It was recommended that he follow-up with Pulmonology, however thishas not yet been scheduled. Since then, unfortunately he was hospitalized around [place] this past winter with acute hypoxic respiratory failure secondary to pneumonia, bronchitis, also some contribution from mildly decompensated heart failure. TTE 05/11/2022 demonstrated LVEF 30 to 35%, anterior, septal, apical wall hypokinesis, inferolateral wall hypokinesis, moderate MR, moderate to severe pulmonary hypertension, mild aortic insufficiency. It was recommended that he be discharged to a TCU, however he declined this. The patient last met with Dr. Turner in follow up in July 2022. He continued to report chronic dyspneaon exertion at that time. Clinical presentation was felt to be more consistent with his recent pneumonia as well as restrictive lung disease and not characteristic of decompensated heart failure. Today, Mr. Delgado presents to the clinic for a routine 3-month follow-up visit. He is accompanied Tonia who is a friend and guest room attendant who is the patient's primary caregiver and helps with transportation to appointments and medication set up. The patient is a somewhat challenging historian, so Danelle helps fill in some of the gaps in history. They tell me that he has continued to struggle with chronic exertional dyspnea which has been fairly limiting in his functional status. He gets winded with walking around 50-100 feet and has to stop to catch his breath. Over the past couple of weeks, he feels he has been getting more shortness of breath at rest and he also notes occasional orthopnea. He was recently started on nebulizer treatments and has noticed some symptomatic improvement when doing this. He otherwise denies symptoms of chest pain, lower extremity edema, palpitations, presyncope, or syncope. He has lost some weight over the past few months. Weight was at 199 lbs in the clinic in July and he is at 187 lbs in the clinic today. He checks his weights at home fairly regularly and he has gotten similar weights on his home scale. ASSESSMENT AND PLAN: 1. Acute on chronic dyspnea on exertion--likely multifactorial with restrictive lung disease and chronic HFrEF contributing 2. Ischemic cardiomyopathy; chronic HFrEF - LVEF around 35-40%. - NYHA class III-IV currently - Etiology: ischemic - Fluid status: Does not appear significantly volume overloaded on exam; target euvolemic weight unclear with some recent weight loss as described above. - Diuretic regimen: Currently on torsemide 10 mg once daily. Guideline directed medical therapy: - Beta jeffery: carvedilol 3.125 mg BID - ACEI/ARB/ARNI: none--on hydralazine 25 mg TID with imdur 30 mg daily for afterload reduction. - Aldactone antagonist: none due to renal function - SGLT2 inhibitor: none--Could consider initiation in follow up as long as eGFR remains >25. 3. Moderate mitral regurgitation 4. Coronary artery disease - History of NSTEMI status post PCI to proximal LAD and proximal OM1 on 08/29/2019.??No chest pain. 5. 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 Type 2 Diabetes PLAN: - Again reviewed with the patient and caregiver that he has some complicated comorbid issues limiting options for management and I am concerned that his prognosis is poor. Recommend referral to palliative care to explore goals of care further as the patient expresses preference for a more conservative approach and desire for symptomatic management, but he is reluctant to pursue any invasive procedures or heroic measures and would like to avoid hospitalization. He is open to meeting with palliative care. - Will check a chest x-ray to evaluate for possible pleural effusions as lung sounds are diminishedon exam today, particularly in the lung bases, and he may benefit from thoracentesis. - Continue current cardiac regimen for now. Will check a BMP and NT pro BNP following the visit today. Pending the chest x-ray findings and lab results, we can consider a trial of increasing his torsemide dose to see if this might help with his shortness of breath. - Counseled on continuing to check weights daily and trying to stick to a low sodium diet (under 2,000 mg/day). - Follow up with Dr. Turner in about 3 months with a repeat BMP and NT pro BNP beforehand. Sooner if needed if he notices signs or symptoms concerning for volume overload. - Recommend meeting with Pulmonology and continuing to follow up with Nephrology. ADDENDUM: Labs following the visit show NT pro BNP trending up significantly to over 26,000 from previous checks closer to around 10,000. Basic metabolic panel shows a slight rise in creatinine to 2.65 from recent baseline closer to 2 to 2.5 range, possibly with a cardiorenal component. Potassium is on the high end of normal at 5.1. Chest x-ray overall appears stable in comparison to a previous study from 04/2023 with stable small right pleural effusion. Recommend a trial of increasing torsemide from 10 mg to 20 mg x3 days and have the [facility] team contact him early next week to reassess symptoms and weight. ?? Thank you for the opportunity to participate in this pleasant patient's care. 60 total minutes was spent today including chart review, precharting, history and exam, post visit documentation, and reviewing studies as outlined above. oTno Valdez APRN, CAREER TECHNOLOGY TEACHER Nurse Practitioner [facility] Pager: [phone] Text Page (8am - 5pm, M-F) Orders this Visit: Orders Placed This Encounter Procedures ??? X-ray Chest 2 vws* ??? Basic metabolic panel ??? N terminal pro BNP outpatient ??? Palliative Care Referral Orders Placed This Encounter Medications ??? albuterol (PROVENTIL) (2.5 MG/3ML) 0.083% neb solution Sig: Inhale 3 mL (2.5 mg) via a nebulizer every 4 hours if needed for Shortness Of Breath or Cough.* There are no discontinued medications. Encounter Diagnoses Name Primary? Ischemic cardiomyopathy ??? Shortness of breath Yes ??? Chronic systolic congestive heart failure (H) ??? Restrictive lung disease ??? CKD (chronic kidney disease) stage 4, GFR 15-29 ml/min (H) CURRENT MEDICATIONS: Current Outpatient Medications Medication Sig Dispense Refill ??? albuterol (PROVENTIL) (2.5 MG/3ML) 0.083% neb solution Inhale 3 mL (2.5 mg) via a nebulizer every 4 hours if needed for Shortness Of Breath or Cough.* ??? alcohol swab prep pads Use to [...] tablet Take 1 tablet by mouth daily ALLERGIES Allergies Allergen Reactions ??? Penicillins Hives PAST MEDICAL, SURGICAL, FAMILY HISTORY: History was reviewed and updated as needed, see medical record. SOCIAL HISTORY: Social History Socioeconomic History ??? Marital status: Spouse name: Not on file ??? Number of children: Not on file ??? Years of education: Not on file ??? Highest education level: Not on file Occupational History ??? Not on file Tobacco Use ??? Smoking status: Former Types: Cigarettes Quit date: 05/17/1981 Years since quittin.5 ??? Smokeless tobacco: Never Substance and Sexual Activity ??? Alcohol use: Never ??? Drug use: Never ??? Sexual activity: Not on file Other Topics Concern ??? Not on file Social History Narrative ??? Not on file Social Determinants of Health Financial Resource Strain: Not on file Food Insecurity: Not on file Transportation Needs: Not on file Physical Activity: Not on file Stress: Not on file Social Connections: Not on file Intimate Partner Violence: Not on file Housing Stability: Not on file Review of Systems: Skin: not assessed Eyes: Positive for glasses ENT: Positive for hearing loss Respiratory: Positive for dyspnea on exertion Cardiovascular: Negative for;palpitations;chest pain;dizziness;lightheadedness;fatigue Positive for;edema Gastroenterology: not assessed Genitourinary: not assessed Musculoskeletal: Positive for joint stiffness;joint pain Neurologic: Positive for numbness or tingling of hands;numbness or tingling of feet Psychiatric: not assessed Heme/Lymph/Imm: Positive for allergies Endocrine: Positive for diabetes Physical Exam: Vitals: BP 124/62 Pulse 68 Ht 1.803 m (5' 11) Wt 85.1 kg (187 lb 11.2 oz) SpO2 95% BMI 26.18 kg/m?? Wt Readings from Last 4 Encounters: 11/06/22 85.1 kg (187 lb 11.2 oz) 07/29/22 90.7 kg (199 lb 14.4 oz) 05/19/22 85.5 kg (188 lb 9.6 oz) 03/13/22 97 kg (213 lb 14.4 oz) CONSTITUTIONAL: Appears his stated age, well nourished, and in no acute distress. HEENT: Pupils equal, round. Sclerae nonicteric. NECK: Supple, no masses appreciated. No JVD. C/V: Regular rate and rhythm, normal S1 and S2, no S3 or S4, no murmur, rub or gallop. RESP: Respirations are unlabored. Lungs with fine crackles in the right lower lobe, otherwise clearwithout wheezing. GI: Abdomen soft, non-tender, non-distended. EXTREM: No clubbing, cyanosis, or pitting lower extremity edema bilaterally. NEURO: Alert and oriented, cooperative. No gross focal deficits. QAWALANGIN with hearing aides in place. PSYCH: Affect appropriate. Mentation normal. Responds to questions appropriately. SKIN: Warm and dry. No apparent rashes or bruising. Recent Lab Results: LIPID RESULTS: Lab Results Component Value Date CHOL 86 05/12/2021 CHOL 94 10/10/2020 HDL 30 (L) 05/12/2021 HDL 34 (L) 10/10/2020 LDL 37 05/12/2021 LDL 44 10/10/2020 TRIG 96 05/12/2021 TRIG 80 10/10/2020 LIVER ENZYME RESULTS: Lab Results Component Value Date AST 14 05/11/2022 AST 16 09/28/2019 ALT 14 05/11/2022 ALT 16 10/10/2020 CBC RESULTS: Lab Results Component Value Date WBC 5.8 [...] 09/29/2019 PLT 371 05/19/2022 PLT 243 09/29/2019 BMP RESULTS: Lab Results Component Value Date NA 140 11/06/2022 NA 139 11/05/2020 POTASSIUM 5.1 11/06/2022 POTASSIUM 4.3 09/16/2021 POTASSIUM 4.3 11/05/2020 CHLORIDE 110 (H) 11/06/2022 CHLORIDE 110 (H) 09/16/2021 CHLORIDE 108 11/05/2020 CO2 19 (L) 11/06/2022 CO2 23 09/16/2021 CO2 26 11/05/2020 ANIONGAP 11 11/06/2022 ANIONGAP 6 09/16/2021 ANIONGAP 5 11/05/2020 GLC 101 (H) 11/06/2022 GLC 190 (H) 05/19/2022 GLC 69 (L) 09/16/2021 GLC 95 11/05/2020 BUN 52.7 (H) 11/06/2022 BUN 48 (H) 09/16/2021 BUN 32 (H) 11/05/2020 CR 2.65 (H) 11/06/2022 CR 1.64 (H) 11/05/2020 GFRESTIMATED 23 (L) 11/06/2022 GFRESTIMATED 39 (L) 11/05/2020 GFRESTBLACK 45 (L) 11/05/2020 ADELINA 9.4 11/06/2022 ADELINA 9.0 11/05/2020 A1C RESULTS: Lab Results Component Value Date A1C 8.6 (H) 08/20/2019 INR RESULTS: Lab Results Component Value Date INR 1.33 (H) 09/29/2019 CC Adal Turner MD [address] [address] This note was completed in part using [employer] voice recognition software. Although reviewed after completion, some word and grammatical errors may occur. documented in this encounter Plan of Treatment Not on file documented as of this encounter Results * X-ray Chest 2 [...] 05/10/2022. Procedure Note Edward Blanchard MD - 11/06/2022 CHEST TWO VIEWS 11/06/2022 2:15 PM HISTORY: [...] Valdez NP IMG DIAGNOSTIC IMAGI NG ORDERABLES * (ABNORMAL) N terminal pro BNP outpatient (11/06/2022 1:53 PM CDT) [facility] N Terminal Pro BNP Outpatient 26,066(H) 0 - 1,800 pg/mL 11/06/2022 2:44 PM CDT [facility] Comment: Reference range shown and results flagged as abnormal are for the outpatient, non acute settings. Establishing a baseline value for each individual patient is useful for follow-up. Suggested inpatient cut points for confirming diagnosis of CHF in an acute setting are: >450 pg/mL (age 18 to less than 50) >900 pg/mL (age 50 to less than 75) >1800 pg/mL (75 yrs and older) An inpatient or emergency department NT-proPBNP <300 pg/mL effectively rules out acute CHF, with 99% negative predictive value. Blood STRUCTURE OF LEFT UPPER LIMB / Unknown Venipuncture / Unknown 11/06/2022 1:53 PM CDT 11/06/2022 1:55 PM CDT Tristan Valdez NP LAB - BLOOD ORDERABL ES LABORATORY [facility] Acute Care Lab [address] Lab (1st floor, no room number) [place] [address], [facility] [phone] * (ABNORMAL) Basic metabolic panel (11/06/2022 1:53 PM CDT) [facility] Sodium 140 136 - 145 mmol/L 11/06/2022 2:32 PM CDT LABORATORY Potassium 5.1 3.4 - 5.3 mmol/L 11/06/2022 2:32 PM CDT LABORATORY Chloride 110(H) 98 - 107 mmol/L 11/06/2022 2:32 PM CDT LABORATORY Carbon Dioxide (CO2) 19(L) 22 - 29 mmol/L 11/06/2022 2:32 PM CDT LABORATORY Anion Gap 11 7 - 15 mmol/L 11/06/2022 2:32 PM CDT LABORATORY Urea Nitrogen 52.7(H) 8.0 - 23.0 mg/dL 11/06/2022 2:32 PM CDT LABORATORY Creatinine 2.65(H) 0.67 - 1.17 mg/dL 11/06/2022 2:32 PM CDT LABORATORY Calcium 9.4 8.8 - 10.2 mg/dL 11/06/2022 2:32 PM CDT LABORATORY Glucose 101(H) 70 - 99 mg/dL 11/06/2022 2:32 PM CDT LABORATORY GFR Estimate 23(L) >60 mL/min/1.7 3m2 11/06/2022 2:32 PM CDT LABORATORY Blood STRUCTURE OF LEFT UPPER LIMB / Unknown Venipuncture / Unknown 11/06/2022 1:53 PM CDT 11/06/2022 1:55 PM CDT Tristan Valdez NP LAB - BLOOD ORDERABL ES [facility] Acute Care Lab [address] Lab (1st floor, no room number) [place] [address], [facility] [phone] documented in this encounter Visit Diagnoses Diagnosis Shortness of breath- Primary Ischemic cardiomyopathy Other specified forms of chronic ischemic heart disease Chronic systolic congestive heart failure (H) Chronic systolic heart failure Restrictive lung disease Other diseases of lung, not elsewhere classified CKD (chronic kidney disease) stage 4, GFR 15-29 ml/min (H) Chronic kidney disease, Stage IV (severe) Ischemic cardiomyopathy Other specified forms of chronic ischemic heart disease Shortness of breath documented in this encounter Care Teams Sports Medicine Physician Relationship Specialty Start Date End Date Clinic, [facility] [address] [place] [address] PCP - General 08/19/19 Adal Turner MD [address], [facility] [address] [place], [place] [address] Assigned Heart and Vascular Provider 11/01/21 02/05/23 Britta Raya, RN Registered Nurse Cardiology 10/27/22 documented as of this encounter
--- OUTSIDE RECORDS SUMMARY | 2023-06-23 11:33 | XMS_ITS | Encounter Summary ---
Author Name Unknown Organization [place] Address [address] [place] [address] Care Team Providers Care Distribution Supervisor Name Role Phone Clinic, [facility] Primary Care Provide r Adal Turner MD Unavailable Britta Raya RN Unavailable Unavaila ble Encounter Details Date Type Department Care Team (Late st Contact Info) Description 11/06/2022 2:00 PM CDT Lab [facility] Heart [facility] [id number] [place] [address] [address] [place] [address] Ischemic cardiomyopathy; Shortness of breath; Chronic systolic congestive heart failure (H) Social [...] to have Coronavirus/COVID-19? No / Unsure 11/06/2022 12:49 PM CDT documented as of this encounter Plan of Treatment Not on file documented as of this encounter Procedures Procedure Name Priority Date/Time Associated Diagnosis Comments N TERMINAL PRO BNP OUTPATIENT Routine 11/06/2022 1:53 PM CDT Ischemic cardiomyopathy Shortness of breath Chronic systolic congestive heart failure (H) BASIC METABOLIC PANEL Routine 11/06/2022 1:53 PM CDT Ischemic cardiomyopathy Shortness of breath documented in this encounter Results * (ABNORMAL) N terminal pro BNP outpatient (11/06/2022 1:53 PM CDT) N Terminal Pro BNP Outpatient 26,066(H) 0 [...] NP LAB - BLOOD ORDERABL ES LABORATORY [facility] Acute Care Lab [address] [facility] Lab (1st floor, no room number) [place] [address] [phone] * (ABNORMAL) Basic metabolic panel (11/06/2022 1:53 PM CDT) Pathologist [facility] Sodium 140 136 - 145 mmol/L 11/06/2022 2:32 PM CDT LABORATORY Potassium 5.1 3.4 - 5.3 mmol/L 11/06/2022 2:32 PM CDT LABORATORY Chloride 110(H) 98 - 107 mmol/L 11/06/2022 2:32 PM CDT LABORATORY Carbon Dioxide (CO2) 19(L) 22 - 29 mmol/L 11/06/2022 2:32 PM CDT [facility] Anion Gap 11 7 - 15 mmol/L 11/06/2022 2:32 PM CDT [facility] Urea Nitrogen 52.7(H) 8.0 - 23.0 mg/dL 11/06/2022 2:32 PM CDT [facility] Creatinine 2.65(H) 0.67 - 1.17 mg/dL 11/06/2022 2:32 PM CDT [facility] Calcium 9.4 8.8 - 10.2 mg/dL 11/06/2022 2:32 PM CDT [facility] Glucose 101(H) 70 - 99 mg/dL 11/06/2022 2:32 PM CDT [facility] GFR Estimate 23(L) >60 mL/min/1.7 3m2 11/06/2022 2:32 PM CDT [facility] Blood STRUCTURE OF LEFT UPPER LIMB / Unknown Venipuncture / Unknown 11/06/2022 1:53 PM CDT 11/06/2022 1:55 PM CDT Tristan Valdez NP LAB - BLOOD ORDERABL ES LABORATORY [facility] Acute Care Lab [address] [facility] Lab (1st floor, no room number) [place] [address], [facility] [phone] documented in this encounter Visit Diagnoses Diagnosis Ischemic cardiomyopathy Other specified forms of chronic ischemic heart disease Shortness of breath Chronic systolic congestive heart failure (H) Chronic systolic heart failure documented in this encounter Care Teams Distribution Supervisor Relationship Specialty Start Date End Date [facility], [facility] [address] [place], [place] [id number] PCP - General 08/19/19 Adal Turner MD [address] [address] Assigned Heart and Vascular Provider 11/01/21 02/05/23 Britta Raya, RN Registered Nurse Cardiology 10/27/22 documented as of this encounter
--- OUTSIDE RECORDS SUMMARY | 2023-06-23 11:33 | XMS_ITS | Encounter Summary ---
Author Name Unknown Organization [facility] Address [address] [place] [id number] Care Team Providers Care Certification Technician Name Role Phone Clinic, [facility] Primary Care Provide r Adal Turner MD Unavailable Encounter Details Date Type Department Care Team (Late st Contact Info) Description 07/29/2022 1:30 PM CDT [facility] [address] [place] [address] Chronic systolic congestive heart failure (H); Ischemic cardiomyopathy; Shortness of breath Social History Tobacco Use Types Packs/Day Years [...] Associated Diagnosis Comments BASIC METABOLIC PANEL Routine 07/29/2022 1:40 PM CDT Chronic systolic congestive heart failure (H) Ischemic cardiomyopathy Shortness of breath documented in this encounter Results * (ABNORMAL) Basic metabolic panel (07/29/2022 1:40 PM CDT) Sodium 141 136 - 145 mmol/L 07/29/2022 2:19 PM CDT LABORATORY Potassium 5.3 3.4 - 5.3 mmol/L 07/29/2022 2:19 PM CDT LABORATORY Chloride 110(H) 98 - 107 mmol/L 07/29/2022 2:19 PM CDT LABORATORY Carbon Dioxide (CO2) 16(L) 22 - 29 mmol/L 07/29/2022 2:19 PM CDT LABORATORY Anion Gap 15 7 - 15 mmol/L 07/29/2022 2:19 PM CDT LABORATORY Urea Nitrogen 55.8(H) 8.0 - 23.0 mg/dL 07/29/2022 2:19 PM CDT LABORATORY Creatinine 2.45(H) 0.67 - 1.17 mg/dL 07/29/2022 2:19 PM CDT LABORATORY Calcium 9.6 8.8 - 10.2 mg/dL 07/29/2022 2:19 PM CDT LABORATORY Glucose 118(H) 70 - 99 mg/dL 07/29/2022 2:19 PM CDT LABORATORY GFR Estimate 26(L) >60 mL/min/1.7 3m2 07/29/2022 2:19 PM CDT LABORATORY Comment:eGFR calculated usin 2020 CKD-EPI equation. Blood STRUCTURE OF RIGHT HAND / Unknown Venipuncture / Unknown 07/29/2022 1:40 PM CDT 07/29/2022 1:40 PM CDT Tristan Valdez NP LAB - BLOOD ORDERABL ES LABORATORY [facility] [address] (1st floor, no room number) [place] [address], [facility] [phone] documented in this encounter Visit Diagnoses Diagnosis Chronic systolic congestive heart failure (H) Chronic systolic heart failure Ischemic cardiomyopathy Other specified forms of chronic ischemic heart disease Shortness of breath documented in this encounter Care Teams Certification Technician Relationship Specialty Start Date End Date Clinic, [facility] [address] [place] [address] PCP - General 08/19/19 Adal Turner MD [address] [place] [id number] Assigned Heart and Vascular Provider 11/01/21 02/05/23 documented as of this encounter
--- OUTSIDE RECORDS SUMMARY | 2023-06-23 11:34 | XMS_ITS | Clinical Summary ---
Author Name Unknown Organization [id number] [facility] Address [place], [place] [address] Care Team Providers Care Supervisor [employer] Name Role Phone Ramo Sosa Primary Care Provide r Allergies Active Allergy Reactions Criticality Noted Date Comments Penicillins Hives Medium 03/24/2007 Medications Medication Sig Dispensed Refills Start Date End Date Status nitroglycerin (NITROSTAT) 0.[address] 0.4 mg under the tongue every 5 minutes if needed for Chest Pain (sublingual tablet For chest pain place 1 tablet under the tongue every 5 minutes for 3 doses. If symptoms persist 5 minutes after 1st dose call 911.). 0 10/04/2019 Active omega-3 fatty acids/fish oil (OMEGA 3 FISH OIL ORAL) 1,400 mg once daily. 0 10/23/2019 Active hydrALAZINE (APRESOLINE) 25 mg tablet Take 25 mg by mouth three times daily. 0 02/16/2022 Active medication order composer Torsemide 20 mg Wednesday,Wednesday ,Wednesday, Then 10 mg all other days. 0 02/23/2022 Active isosorbide mononitrate (IMDUR) 30 mg extended release tablet 24 Hour Take 1 Tablet (30 mg) by mouth once daily. 90 Tablet 3 02/23/2022 Active atorvastatin (LIPITOR) 40 mg tabletIndications:Oth er hyperlipidemia Take 1 Tablet (40 mg) by mouth once daily in the evening. 90 Tablet 3 02/23/2022 Active carvediloL (COREG) 3.125 mg tabletIndications:Hea rt failure, unspecified HF chronicity, unspecified heart failure type (HC) Take 1 Tablet by mouth 2 times daily. 180 Tablet 1 02/28/2022 Active clopidogreL (PLAVIX) 75 mg tabletIndications:Hea rt failure, unspecified HF chronicity, unspecified heart failure type (HC) Take 1 Tablet (75 mg) by mouth once daily. 90 Tablet 0 05/04/2022 Active Psyllium Husk-Sucrose 3.4 gram/7 gram powd Mix 1 Packet in liquid then take by mouth. 0 05/18/2022 Active torsemide (DEMADEX) 10 mg tablet Take 20 mg by mouth once daily. 0 03/23/2022 Active albuterol HFA (PRO-AIR; VENTOLIN; PROVENTIL) 90 mcg/actuation inhaler Inhale 2 puffs into the lungs every 6 hours as needed for shortness of breath, wheezing or cough. 0 08/13/2022 Active NebulizerIndications: Restrictive lung disease Nebulizer, disposable neb kit x 4, reuseable neb kit x 1, mask x 1, filters x 1. Frequency of use: daily; Medication:albut martha solution Length of need: 99 months 1 Each 0 08/27/2022 Active blood sugar diagnostic (Accu-Chek Denise Plus test strp) stripIndications:Diab etes mellitus without complication (HC) USE TO TEST 4 TIMES DAILY 400 Each 3 11/09/2022 Active glipiZIDE extended-release (GLUCOTROL XL) 5 mg Extended-Release tabletIndications:Typ e 2 diabetes mellitus without complication, unspecified whether fpc insulin use (HC) Take 1 Tablet (5 mg) by mouth once daily before a meal. 90 Tablet 1 01/04/2023 Active cetirizine (ZYRTEC) 10 mg tablet Take 10 mg by mouth. 0 03/19/2023 Active clindamycin (CLEOCIN) 300 mg capsule TAKE 1 CAPSULE BY MOUTH EVERY 8 HOURS UNTIL ALL GONE. 0 06/26/2022 Active tamsulosin (FLOMAX) 0.4 mg capsule 0 05/18/2022 Active triamcinolone (ARISTOCORT; KENALOG) 0.1 % cream Apply topically to affected area(s). 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, unspecified whether fpc insulin use 06/05/2022 Acute respiratory failure with hypoxia 3 Hyperparathyroidism due to renal insufficiency 0 06/05/2022 Biventricular congestive heart failure 2 CKD (chronic kidney disease) stage 4, GFR 15-29 ml/min 04/14/2021 Mixed hyperlipidemia 05/25/2020 Type 2 diabetes mellitus without complications 0 11/21/2019 Heart failure, unspecified 10/04/2019 Generalized ischemic myocardial dysfunction 09/2019 Precordial pain 08/19/2019 Encounters Date Type Department Care Team Description 06/02/2023 2:50 PM SHARE HOLDER Office Visit [facility] [address] [place] [address] Chantel Ortiz PA Follow Up (uti ) 06/02/2023 Travel 05/13/2023 4:45 PM SHARE HOLDER Office Visit [facility] [id number] [place] [address], [place] [address] Ingrid Valdivia, DO UTI (feels like his UTI is back , hurts when he goes to the bathroom ) 05/13/2023 Travel 05/03/2023 1:00 PM SHARE HOLDER Office Visit [facility] [address] [place] [id number] Jl Rivera MD Urinary Problem (Torsemide dose was increased 3 months ago to 20 mg daily.. Now he has to urinate constantly. Wants to check for UTI. Has been going on for over a week./Pain with urination. This is not new./No fever or flank pain.) 05/03/2023 Travel 04/05/2023 Refill [facility] [address] [place] [address] Ramo Sosa, Refill Request (ALBUTEROL SULFATE INHALATION NEB SOLUTION 2.5 MG /3 ML) from Last 3 Months Immunizations Name Administration Dates Next Due COVID-19 vaccine (Storone 30mcg/0.3mL) EDILSON Steinberg 08/08/2020,07/18/2020 Influenza, High-dose Inactivated 02/29/2012 Influenza, High-dose Quadrivalent Inactivated Influenza, Inactivated AIIV4 (Age 65+ Years) Preserv Free 02/23/2022 Pneumococcal Poly,23-Valent (Pneumovax) 09/27/19 10 Td, Preservative Free (age >= 7 Years) 7 Tdap 01/04/2023 Zoster (Shingrix-RZV, recombinant) 04/02/2023, Zoster (Zostavax-ZVL, live) 02/29/2012 Family History Medical History Relation Name Comments Dementia Mother Parkinsonism Mother Relation Name Status Comments Father Mother Social History Tobacco Use Types Packs/Day Years Used Date Smoking Tobacco: Former Smokeless Tobacco: Never Alcohol Use Standard Drinks/Week Comments Not Currently 0 (1 standard drink = 0.6 oz pur e alcohol) PHQ-2 Answer Date Recorded PHQ-2 TOTAL SCORE 0 02/23/2022 Social Connections Answer Date Recorded Frequency of Communication with Friends and Fami ly Not on file 06/02/2023 Financial Resource Strain Answer Date R ecorded Difficulty of Paying Living Expenses 3 06/01/2022 Difficulty of Paying Living Expenses Not on file 06/01/2022 Food Insecurity Answer Date Recorded Worried About Running Out of Food in the Last Ye ar 1 06/01/2022 Transportation Needs Answer Date Record ed Lack of Transportation (Medical) 1 06/01/2022 Housing Stability Answer Date Recorded Unable to Pay for Housing in the Last Year 1 06/01/2022 Sex and Gender Information Value Date Recorded Sex Assigned at Not on file Gender Identity Not on file Sexual Orientation Not on file Obstetrics History Last Filed Vital Signs Vital Sign Reading Time Taken Comments Blood Pressure 116/62 06/02/2023 2:52 PM SHARE HOLDER Pulse 60 06/02/2023 2:52 PM SHARE HOLDER Temperature 36.2 ??C (97.1 ??F) 05/03/2023 1:08 PM CS T Respiratory Rate 18 12/12/2021 11:1 1 AM CDT Oxygen Saturation 98% 05/13/2023 4:46 PM SHARE HOLDER Inhaled Oxygen Concentration - - Weight 77.5 kg (170 lb 12.8 oz) 06/02/2023 2:52 PM SHARE HOLDER Height 180.3 cm (5' 11) 05/13/2023 4:46 PM SHARE HOLDER Body Mass Index 23.82 05/13/2023 4:46 PM SHARE HOLDER Plan of Treatment Health Maintenance Due Date Last Done Comments Pneumococcal series for age 65+ (2 of 2 - PCV) 09/26/2010 09/26/2009 COVID-19 vaccine series (5 - 2022- season) 2023 12/29/2021, 03/20/2021, 08/08/2020, Additional history exists Influenza for age 65+ 01/15/2023 02/23/2022 , 02/29/2012, 02/29/2012 Depression screening for age 12+ 02/23/2023 02/24/20 Medicare Wellness for age 65+ 02/24/2023 02/23/2022 BMI (ht and wt on same day) for age 18+ 05/13/2024 05/13/2023, 08/27/2022, 02/23/2022, Additional history exists Tetanus booster 01/04/2033 01/04/2023, 10/25/2006 Tdap Completed 01/04/2023 Zoster (shingles) series for age 50+ Completed 04/02/2023, 01/04/2023, 02/29/2012 Medical Devices Implanted Type Area System Auditor Device Identifier Shelf Expiration Date Model / Serial / Lot Plate /3 Tubular 61mm 5 Hole W/Collar 241.35 Synthe - [id number] Implanted:Qty : 1 on 03/25/2007 at [facility] Ortho Imp.,Screw s & Plates Right: Ankle mth sense 241.35# / / LOAD#2-31 2-4 Screw Canclls 4.0x30mm Part Thread 207.030 Synthes - [id number] Implanted:Qty : 1 on 03/25/2007 at [facility] Ortho Imp.,Screw s & Plates Right: Ankle DepiSnap 207.030# / / LOAD#2-31 2-4 Screw Cortex 3.5x16mm Sm Hex Socket 204.016 [employer] - [id number] Implanted:Qty : 2 on 03/25/2007 at [facility] Right: Ankle DepiSnap 204.016# / / LOAD#2-31 2-4 Screw Canclls 4.0x16mm Full Thread 206.016 [employer] - [id number] Implanted:Qty : 1 on 03/25/2007 at [facility] Right: Ankle mth sense 206.016# / / LOAD#2-31 2-4 Procedures Procedure Name Priority Date/Time Associated Diagnosis Comments URINE CULTURE Add On 06/02/2023 3:36 PM SHARE HOLDER History of UTI Dysuria URINALYSIS MICROSCOPIC STAT 06/02/2023 3:36 PM SHARE HOLDER History of UTI UA W/ SEDIMENT EXAM REFLEXED PER CRITERIA Patient wait 06/02/2023 3:36 PM SHARE HOLDER History of UTI URINALYSIS MICROSCOPIC STAT 05/13/2023 4:52 PM SHARE HOLDER Complicated UTI (urinary tract infection) URINE CULTURE Routine 05/13/2023 4:52 PM SHARE HOLDER Complicated UTI (urinary tract infection) UA W/ SEDIMENT EXAM REFLEXED PER CRITERIA STAT 05/13/2023 4:52 PM SHARE HOLDER Complicated UTI (urinary tract infection) URINE CULTURE Add On 05/03/2023 1:14 PM SHARE HOLDER UTI (urinary tract infection), uncomplicated URINALYSIS MICROSCOPIC STAT 05/03/2023 1:14 PM SHARE HOLDER UTI (urinary tract infection), uncomplicated UA W/ SEDIMENT EXAM REFLEXED PER CRITERIA STAT 05/03/2023 1:14 PM SHARE HOLDER UTI (urinary tract infection), uncomplicated from Last 3 Months Results * URINALYSIS MICROSCOPIC (06/02/2023 3:36 PM SHARE HOLDER) Only the most recent of3 resultswithin the time period is included. RBC 0-2 0-2, None Seen /HPF 06/02/2023 3:40 PM SHARE HOLDER [facility] WBC 0-2 0-2, 3-5, None Seen /HPF 06/02/2023 3:40 PM SHARE HOLDER [facility] BACTERIA Few None Seen, Rare, Few Bacteria/H PF 06/02/2023 3:40 PM SHARE HOLDER [facility] EPITHELIAL CELLS Few None Seen, Few Epi/HPF 06/02/2023 3:40 PM SHARE HOLDER [facility] Mucus Present 06/02/2023 3:40 PM SHARE HOLDER [facility] Urine URINE SPECIMEN / Unknown Non-Blood / Unknown 06/02/2023 3:36 PM SHARE HOLDER 06/02/2023 3:36 PM SHARE HOLDER Chantel LEYVA URINE Performing Organization Address [facility]/ZIP Co de Phone Number [facility] [address] [place] [address], [place] * URINE CULTURE (06/02/2023 3:36 PM SHARE HOLDER) Only the most recent of3 resultswithin the time period is included. CULTURE <10,000 CFU/mL multiple organisms 06/05/2023 12:59 PM SHARE HOLDER [facility] TRAL LABOR[facility] Urine URINE SPECIMEN / Unknown Non-Blood / Unknown 06/02/2023 3:36 PM SHARE HOLDER 06/02/2023 3:36 PM SHARE HOLDER Chantel LEYVA MICROBIOLOGY Performing Organization Address City/[facility]/ZIP Co de Phone Number [facility] [address] [place] [address], [place] * (ABNORMAL) UA W/ SEDIMENT EXAM REFLEXED PER CRITERIA (06/02/2023 3:36 PM SHARE HOLDER) Only the most recent of3 resultswithin the time period is included. COLOR Yellow Yellow Color 06/02/2023 3:39 PM SHARE HOLDER [facility] CLARITY Clear Clear Clarity 06/02/2023 3:39 PM SHARE HOLDER [facility] SPECIFIC GRAVITY,URINE 1.015 1.010, 1.015, 1.020, 1.025 06/02/2023 3:39 PM SHARE HOLDER [facility] PH,URINE 5.0(A) 6.0, 7.0, 8.0, 5.5, 6.5, 7.5, 8.5 06/02/2023 3:39 PM SHARE HOLDER [facility] UROBILINOGEN,Q UALITATIVE Normal Normal EU/dl 06/02/2023 3:39 PM SHARE HOLDER [facility] PROTEIN, URINE Negative Negative mg/dL 06/02/2023 3:39 PM SHARE HOLDER [facility] GLUCOSE, URINE Negative Negative mg/dL 06/02/2023 3:39 PM SHARE HOLDER [facility] KETONES,URINE Negative Negative mg/dL 06/02/2023 3:39 PM SHARE HOLDER [facility] BILIRUBIN,URIN E Negative Negative 06/02/2023 3:39 PM SHARE HOLDER [facility] OCCULT BLOOD,URINE Trace(A) Negative 06/02/2023 3:39 PM SHARE HOLDER [facility] NITRITE Negative Negative 06/02/2023 3:39 PM SHARE HOLDER [facility] LEUKOCYTE ESTERASE Negative Negative 06/02/2023 3:39 PM SHARE HOLDER [facility] Urine URINE SPECIMEN / Unknown Non-Blood / Unknown 06/02/2023 3:36 PM SHARE HOLDER 06/02/2023 3:36 PM SHARE HOLDER Chantel LEYVA URINE [facility] [address] [place] [address], [place] from Last 3 Months Care Teams Supervisor [employer] Relationship Specialty [place] [address] [place] [address] PCP - General Family Practice 12/27/20
== END 2023-06-21 15:51 | disposition home or self-care (01) ==
LOC: NFLDREF 06-23 11:30
PROVIDERS: Visit Provider Internal Medicine Nephrology
DX: N18.30 Chronic kidney disease, stage 3 unspecified (principal); E11.9 Type 2 diabetes mellitus without complications; I10 Essential (primary) hypertension; I50.9 Heart failure, unspecified
CPT/HCPCS: 80069; 82043; 82310; 82570; 82607; 82728; 82747; 83540; 83550; 83970; 84550; 86140